=== PATIENT | female | born 1940 | race Caucasian/White ===

== ENCOUNTER 2018-04-26 08:54 | Emergency (ER) | payer MEDICARE, OTHER ==
[~2018-04-26] VITALS: Ht 172.7 cm; Wt 74.4 kg
--- OUTSIDE RECORDS SUMMARY | ~2018-04-26 | XMS | Clinical Summary ---
Demographics + + + | Address | [address] | | | [place] [address] | + + + | Home Phone | | + + + | Preferred Language | Unknown | + + + | Marital Status | Unknown | + + + | Zoroastrian Affiliation | Unknown | + + + | Race | Unknown | + + + | Ethnic Group | Unknown | + + + Author + + + | Author | [facility] | | | and [facility] | + + + | Organization | [facility] | | | and [facility] | + + + | Address | Unknown | + + + | Phone | Unavailable | + + + Care Team Providers + +------+ + | Care Middle Card Tender Name | Role | Phone | + +------+ + PP | Unavailable | + +------+ + Allergies Not on File Current Medications Not on file Active Problems Not on file Social History + +-------+ +--------+------+ | Tobacco [...] on file | | + + + Plan of Treatment + + + + + | Health Maintenance | Due Date | Last Done | Comments | + + + + + | Vaccine: | | | | | Dtap/Tdap/Td (1 - | 8 | | | | Tdap) | | | | + + + + + | Vaccine: Zoster (1 | | | | | of 2) | 9 | | | + + + + + | Vaccine: | | | | | Pneumococcal 65+ | 4 | | | | Low/Medium Risk (1 | | | | | of 2 - PCV13) | | | | + + + + + | Vaccine: Influenza | | | | | (#1) | 8 | | | + + + + + Results Not on filefrom Last 3 Months"
--- OUTSIDE RECORDS SUMMARY | ~2018-04-26 | XMS | Clinical Summary ---
Demographics + + + | Address | [address] | | | [place] [address] | + + + | Home Phone | | + + + | Preferred Language | Unknown | + + + | Marital Status | | + + + | Roman Catholic Affiliation | Unknown | + + + | Race | White | + + + | Ethnic Group | Not or | + + + Author + + + | Organization | Unknown | + + + | Address | Unknown | + + + | Phone | Unavailable | + + + Care Team Providers + +------+ + | Care District Court Judge Name | Role | Phone | + +------+ + PP | Unavailable | + +------+ + Source Comments [facility] is fully live on both [facility] and [facility] InPatient.[facility] Allergies Not on File Current Medications Not [...] | + + + + + | Pneumococcal (Adult) | | | | | (1 of 2 - PCV13) | 4 | | | + + + + + | INFLUENZA VACCINE | | | | | (FLU SHOT) | 8 | | | + + + + + Results Not on filefrom Last 3 Months"
--- OUTSIDE RECORDS SUMMARY | ~2018-04-26 | XMS | Clinical Summary ---
Demographics + + + | Address | [address] | | | [place] [address] | + + + | Home Phone | | + + + | Preferred Language | Unknown | + + + | Marital Status | | + + + | Caodaism Affiliation | Unknown | + + + | Race | White | + + + | Ethnic Group | Not or | + + + Author + + + | Organization | Unknown | + + + | Address | Unknown | + + + | Phone | Unavailable | + + + Care Team Providers + +------+ + | Care Boiler Room Helper Name | Role | Phone | + +------+ + PP | Unavailable | + +------+ + Source Comments [facility] is fully live on both [facility] and [facility] InPatient.[facility] Allergies Not on File Current Medications Not [...]
--- OUTSIDE RECORDS SUMMARY | ~2018-04-26 | XMS | Clinical Summary ---
Demographics + + + | Address | [address] | | | [place] [address] | + + + | Home Phone | | + + + | Preferred Language | Unknown | + + + | Marital Status | Single | + + + | Jewish Affiliation | Unknown | + + + | Race | Unknown | + + + | Ethnic Group | Unknown | + + + Author + + + | Author | [facility] | + + + | Organization | [facility] [facility] | + + + | Address | Unknown | + + + | Phone | Unavailable | + + + Care Team Providers + +------+ + | Care Band Sawyer Name | Role | Phone | + +------+ + | Medicine, [place] | PP | Unavailable | | Family | | | + +------+ + Allergies Not on [...] | + + + Plan of Treatment Not on file Results Not on filefrom Last 3 Months"
--- OUTSIDE RECORDS SUMMARY | ~2018-04-26 | XMS | Clinical Summary ---
Demographics + + + | Address | [address] | | | [place] [address] | + + + | Home Phone | | + + + | Preferred Language | Unknown | + + + | Marital Status | Unknown | + + + | Jainism Affiliation | Unknown | + + + | Race | Unknown | + + + | Ethnic Group | Unknown | + + + Author + + + | Author | [facility] | | | and [place] | + + + | Organization | [facility] | | | and [place] | + + + | Address | Unknown | + + + | Phone | Unavailable | + + + Care Team Providers + +------+ + | Care Home Security Alarm Installer Name | Role | Phone | [...]
--- OUTSIDE RECORDS SUMMARY | ~2018-04-26 | XMS | Clinical Summary ---
Demographics + + + | Address | [address] | | | [place] [address] | + + + | Home Phone | | + + + | Preferred Language | Unknown | + + + | Marital Status | Single | + + + | Hinduism Affiliation | Unknown | + + + | Race | Unknown | + + + | Ethnic Group | Unknown | + + + Author + + + | Author | [facility] | + + + | Organization | [facility] | + + + | Address | Unknown | + + + | Phone | Unavailable | + + + Care Team Providers + +------+ + | Care Digital Program Manager Name | Role | Phone | + +------+ + | Medicine, [place] | PP | Unavailable | | Family [...]
[2018-04-26] MEDS ORDERED: CLONAZEPAM1 MG PO (09:11)
[2018-04-26] MEDS ORDERED: MYCOPHENOLATE500 MG PO (09:11)
[2018-04-26] MEDS ORDERED: [UNRECOGNIZED DRUG - OTHER] PO (09:12)
[2018-04-26] MEDS ORDERED: ALENDRONATE SOD70 MG PO (09:13)
[2018-04-26] MEDS ORDERED: NORCO 5-325 TA1 EACH PO (09:26)
[2018-04-26] MEDS ORDERED: METHYLPREDNISOLO4 M1 PO (09:26)
== END 2018-04-26 10:00 | disposition home or self-care (01) ==
LOC: ED 08:54
DX: S20.212A Contusion of left front wall of thorax, initial encounter (principal); Z88.2 Allergy status to sulfonamides; Z79.899 Other long term (current) drug therapy; W18.30XA Fall on same level, unspecified, initial encounter; Y93.01 Activity, walking, marching and hiking
CPT/HCPCS: 99283

== ENCOUNTER 2018-07-29 16:40 | Inpatient (IN) | payer MEDICARE, OTHER ==
[~2018-07-29] VITALS: Ht 172.7 cm; Wt 75.6 kg
[~2018-07-29 16:40] MED LIST: ALENDRONATE SOD70 MG PO; CLONAZEPAM1 MG PO; METHYLPREDNISOLO4 M1 PO; MYCOPHENOLATE500 MG PO; NORCO 5-325 TA1 EACH PO; [UNRECOGNIZED DRUG - OTHER] PO
--- NOTE | 2018-07-29 22:34 | NUR ---
PT ARRIVED VIA STRETCHER TO ROOM 123. ALERT AND OREINTATED, WAS SLIDE ACROSS WITH ASSIST OF MULT STAFF. TOLERATED FAIR, COMPLAINT PAIN WHEN TURNING, ONCE DONE, PAIN DECREASED. L LEG SUPPORTED ON PILLOW FOR COMFORT.
--- NOTE | 2018-07-29 23:15 | NUR ---
PATIENT RESTING IN BED. DENIES ANY PAIN AT THIS TIME. AAOX4. LUNGS ARE CLEAR. VS WNL. ABD IS SOFT, BOWEL SOUNDS ACTIVE. TELE [address] NO EDEMA NOTED. LEFT LEG IN SPLINT, CMS INTACT. LEG ELEVATED. QUINTANILLA IN PLACE, URINE DRAINING FREELY. IV PATENT, IV FLUIDS AND BOLUS STARTED. PATIENT DENIES ANY NEEDS AT THIS TIME AND REQUESTING TO REST. CALL LIGHT IN REACH.
--- NOTE | 2018-07-30 02:42 | NUR ---
PATIENT REQUESTING PRN PAIN MEDICATION FOR LEFT LEG PAIN 01/30. PRN DILAUDID PROVIDED. PATIENT REPORTS BEING COMFORTABLE IN THE BED. LEFT LEG ELEVATED. CMS INTACT. IV FLUIDS PER ORDER, SITE WNL. QUINTANILLA DRAINING CLOWDY URINE, OUTPUT QS. PATIENT DENIES OTHER NEEDS. CALL LIGHT IN REACH.
--- NOTE | 2018-07-30 04:30 | NUR ---
PATIENT APPEARS TO BE SLEEPING. EYES CLOSED. RR 18. IV FLUIDS PER ORDER, SITE WNL. CALL LIGHT IN REACH.
--- NOTE | 2018-07-30 05:30 | NUR ---
PATIENT RESTING IN BED. REPORTS THAT SHE DOESN'T THINK SHE SLEPT AT ALL BECAUSE SHE IS ANXIOUS ABOUT WHAT WILL HAPPEN TODAY. REPORTS PAIN "BARELY THERE". RATES 5/10 AND STATES THAT IS COMFORTABLE, DENIES NEEDS FOR PRN PAIN MEDICATION. QUINTANILLA DRAINING WELL, OUTPUT QS. VS STABLE. IV FLUIDS PER ORDER, SITE WNL. PATIENT REQUEST HOT CHOCOLATE AND A MENU FOR BREAKFAST WHICH WAS GIVEN TO HER.
--- NOTE | 2018-07-30 06:12 | NUR ---
PATIENT ARRIVED AROUND 2300 LAST NIGHT. PAIN WELL CONTROLLED WITH 1 NORCO IN ED AND 1 DOSE OF IV DILAUDID. LEFT LEG IN SPLINT, ELEVTAED, CMS INTACT. QUINTANILLA IN PLACE, OUTPUT QS. IV FLUIDS PER ORDER, SITE WNL. BED REST AT THIS TIME. REGULAR DIET. PATIENT AAOX4.
--- NOTE | 2018-07-30 07:30 | NUR ---
REPORT FROM MARGARITA SHARPE. PT AWAKE AND SITTING UPRIGHT IN BED. STATES HER PAIN IS WELL CONTROLLED, ESPECIALLY WHILE SITTING STILL. RATES PAIN 3\10. TELE #2 SR. PT DENIES CONCERNS. ORDERED BREAKFAST.
--- NOTE | 2018-07-30 07:37 | NUR ---
RECIEVED CRITICAL LAB VALUE FROM KORINA IN THE LAB, TROP T VALUE OF 0.017. DR BHATIA AND DR YI ADVISED. NO NEW ORDERS.
--- NOTE | 2018-07-30 09:22 | NUR ---
IMAGING IN ROOM FOR ECHO. PT DENIES CONCERNS ATT.
--- NOTE | 2018-07-30 10:03 | NUR ---
CHANGED IVF BAG. PT STATES IT FEELS FINE. HAS VISITOR IN ROOM. NEED TO CHANGE IV LATER TODAY DUE TO FIELD START. PT OK WITH THAT.
--- NOTE | 2018-07-30 10:07 | NUR ---
PATIENT IN BED TALKING WITH VISITOR. FRESH WATER GIVEN. CALL LIGHT IN REACH. NO FURTHER NEEDS AT THIS TIME.
--- NOTE | 2018-07-30 11:09 | NUR ---
PT BACK FROM CT. STATES THE PAIN WAS BRIEF AND DENIES NEED FOR ANY MEDICATION. REHOOKED TO IVF.
--- NOTE | 2018-07-30 13:00 | NUR ---
ELIZABETH PETER IN ROOM TO TALK TO PT REGARDING SURGERY TOMORROW. PT ASKED QUESTIONS APPROPRIATLY. FRIEND IN ROOM. PT DENIES ANY CONCERNS REGARDING SURGERY
--- NOTE | 2018-07-30 15:11 | NUR ---
PATIENT IN BED TALKING TO VISITORS. CALL LIGHT IN REACH. NO FURTHER NEEDS AT THIS TIME.
--- NOTE | 2018-07-30 15:22 | NUR ---
PT HAS VISITORS IN ROOM. QUICK ASSESSMENT DONE. PULSES INTACT. DENIES PAIN.
--- NOTE | 2018-07-30 17:01 | NUR ---
CALLED, NO ANSWER, LEFT MESSAGE SAYING ECHO RESULTS RETURNED TO MED-SURG STATING DR. YI CLEARED PT FOR SURGERY TOMORROW. NO PATIENT NAME MENTIONED IN MESSAGE LEFT ON VOICEMAIL.
--- NOTE | 2018-07-30 18:16 | NUR ---
PATIENT SITTING UP IN EBD EATING DINNER. FRESH WATER GIVEN. B/P HIGH, RN NOTIFIED. CALL LIGHT IN REACH. NO FURTHER NEEDS AT THIS TIME.
--- NOTE | 2018-07-30 18:20 | NUR ---
PT ON BEDREST THROUGH OUT DAY. PT TOLERATED HER PAIN AND DECLINED PAIN MEDICATION. TRIED TO HAVE BM ON BEDPAN, UNABLE. RA. D5LR @ 100. SURGERY PLANNED FOR 0930. SHOULD BE HERE TO GET HER AROUND 0800.
--- NOTE | 2018-07-30 19:20 | NUR ---
SHIFT REPORT RECEIVED. PATIENT RESTING IN BED. DENIES ANY PAIN. CALL LIGHT IN REACH. IV FLUIDS PER ORDER, SITE WNL.
--- NOTE | 2018-07-30 20:14 | NUR ---
SPOKE WITH DR. JANNETTE CARRENO PRN PAIN/NAUSEA MEDICATION. ORDERS RECEIVED. VERIFIED USING READ BACK METHOD.
--- NOTE | 2018-07-30 22:30 | NUR ---
PATIENT APPEARED TO BE SLEEPING IN BED. WOKE EASILY TO VOICE. PATIENT DENIES PAIN. SPLINT ON LEFT LEG. CMS INTACT. PATIENT LEANING HEAVILY TO RIGHT SIDE. REPOSITIONED FOR COMFORT. LEFT LEG ELEVATED ON PILLOWS. PATIENT'S IV SITE WAS STARTED BY EMS, PER POLICY PATIENT REQUIRES NEW SITE. UNSUCCESSFUL ATTEMPT BY THIS RN. CHARTER REPRESENTATIVE CALLED FOR ASSISTANCE. PATIENTDENIES FURTHER NEEDS. CALL LIGHT IN REACH.
--- NOTE | 2018-07-30 22:59 | EKG ---
[facility] [address] [place] [address] Signed Normal sinus rhythm Left axis deviation Abnormal ECG No previous ECGs available Confirmed by NANO YI MD ([id number]) on 07/30/2018 10:58:46 PM Electronically Signed By: NANO YI MD 07/30/18 2259 PATIENT NAME: DAMION LINDO Electrocardiogram DATE OF : 38 PHYSICIAN: NANO YI MD REPORT #: [id number] REPORT IS CONFIDENTIAL AND NOT TO BE RELEASED WITHOUT AUTHORIZATION
--- NOTE | 2018-07-31 00:30 | NUR ---
QUALITY ASSURANCE SUPERVISOR BODY MELINA Martines WAS ABLE TO START IV SITE. SEE VASCULAR ACCESS MANAGEMENT.
--- NOTE | 2018-07-31 02:30 | NUR ---
PATIENT RESTING IN BED WHEN RN ROUNDED ON HER. STATES SHE HAS BEEN SLEEPING ON AND OFF BUT CAN'T GET WARM OR STAY ASLEEP. PATIENT PROVIDED WARM BLANKET, REPOSITIONED PATIENT. PRN MORPHINE PROVIDED FOR 5/10 PAIN. PATIENT DECLINED ICE PACKS. LEFT LEG ELEVATED ON PILLOWS. SKIN IS WARM, CMS INTACT. HEEL PROTECTOR ON RIGHT FOOT. IV FLUIDS INFUSING. PATIENT REPORTS BEING MORE COMFORTABLE. CALL LIGHT IN REACH.
--- NOTE | 2018-07-31 04:00 | NUR ---
PATIENT SLEEPING SOUNDLY, SNORING LIGHTLY. RR 18. CALL LIGHT IN REACH.
--- NOTE | 2018-07-31 05:35 | NUR ---
PATIENT SLEPT ON AND OFF THROUGHOUT THE SHIFT. PATIENT IS ORIENTED X4. CALL APPROPRIATELY. HAS NOT BEEN OUT OF BED. LEFT LEG IN SPLINT AND ELEVATED, CMS INTACT. QUINTANILLA, URINE OUTPUT QS. IV FLUIDS PER ORDER, 2 SITES FOR SURGERY. VS WNL. NO NAUSEA. NPO SINCE MIDNIGHT.
--- NOTE | 2018-07-31 07:08 | HP ---
[facility] [address] [place], [place] [address] Signed ADMISSION DATE: 07/29/2018 HISTORY OF PRESENT ILLNESS: Kaden is a 78-year-old white female, who presented to the emergency room last night. She describes a ground level fall at home. She sounds like she has a pretty minimal household ambulator to begin with, needs a wheelchair or a walker to get around at home. Be it as it may, she was standing up and had a weightbearing twisting injury and was unable to bear weight on her left leg there after. At present time, her only complaint is pain in the left leg. She is alert and oriented, white female, in no acute distress. Past medical history, medications, and allergies are deferred to the hospitalist consultation, although she reiterates to me that she actually has no allergies. She said she used to be allergic to pet dander, but she seemed to outgrow it when she hit 69. PHYSICAL EXAMINATION: GENERAL: She is alert and appropriate. HEAD, EARS, EYES, NOSE, AND THROAT: Did not reveal any evidence of craniofacial trauma. NECK: Moderately stiff, but that is consistent with her age. CHEST: Clear. CARDIAC: Reveals a regular rhythm. ABDOMEN: Benign. EXTREMITIES: Examination of her left leg reveals it to be encased in a long leg posterior splint. She appreciates light touch in the tips of her toes and nail beds are pink with a quick capillary refill. Her x-rays were reviewed and she has a spiral distal tibial fracture with some distal extension and a more proximal spiral fibular fracture. I have told her at this time. She has a fractured tibia and fibula, and our general recommendation is for surgical stabilization. At the present time, I am not sure if this will be best accomplished with a gisselle or with a plate. We will ask to CT scan of the ankle today, which we will hopefully let us see how comminuted the distal segment is to determine whether or not we can get distal fixation with a screw through a gisselle or whether we will need to go to a plate device. I explained all potential risks and complications associated with surgical intervention and she is comfortable with proceeding. I then called her daughter and described the same program to her. The daughter has had several previous fractures and apparently had taken care of the Electronically Signed By: YAKOV BHATIA MD 07/31/18 0708 PATIENT NAME: KADEN LINDO HISTORY AND PHYSICAL DATE OF : 38 REPORT #: [id number] PHYSICIAN: YAKOV BHATIA MD PCP: TEJINDER BENAVIDES MD REPORT IS CONFIDENTIAL AND NOT TO BE RELEASED WITHOUT AUTHORIZATION [facility] [address] [place] [id number] Signed daughter before. The daughter previously had a tibial fracture that was treated with an IM nail, so the daughter seems quite knowledgeable about potential risks and complications, and is comfortable with proceeding as outlined for her mother. MD HUGH DavisB/MODL /[id number] Copies: ~ Electronically Signed By: YAKOV BHATIA MD 07/31/18 0708 PATIENT NAME: KADEN LINDO HISTORY AND PHYSICAL DATE OF : 38 REPORT #: [id number] PHYSICIAN: YAKOV BHATIA MD PCP: TEJINDER BENAVIDES MD REPORT IS CONFIDENTIAL AND NOT TO BE RELEASED WITHOUT AUTHORIZATION
--- NOTE | 2018-07-31 07:27 | NUR ---
BEDSIDE REPORT FROM SHERYL AVILA, PT SITTING UP IN BED ALERT AND ORIENTED. NO DISTRESS, PT REPORTS NO PAIN AT THIS TIME.
--- NOTE | 2018-07-31 08:15 | NUR ---
PT SITTING UP IN BED VISITNG WITH GUESTS IN ROOM
--- NOTE | 2018-07-31 09:23 | NUR ---
SPOKE WITH PATIENT AND FRIENDS IN ROOM. PATIENT LIVES AT OWN HOME, HAS RAMP AND HAS DME EQUIPMENT. PATIENT HAS BEEN UNSTEADY ON FEET AND HAS FALLEN A FEW TIMES THIS LAST YEAR. PATIENT TO GO TO SURGERY THIS MORNING TO REPAIR A FRACTURED LEG. SHE HAS DISCUSSED WITH HER FRIENDS AND THEY HAVE CALLED [facility] IN [place] FOR PROBABLE REHAB STAY THERE POSTOPERTIVELY. SHE HAS AN ADULT SON WHO STAYS AT HER HOUSE BUT CANNOT COUNT ON HIM FOR HELP. WE DISCUSSED MEDICARE PAYMENT FOR REHAB. ENCOURAGED HER FRIENDS TO BRING IN HER WALKER TO USE WITH PT TOMORROW. WE DISCUSSED POSSIBLE IN-HOME HELP TO HIRE AFTER REHAB STAY. QUESTIONS ANSWERED.
--- NOTE | 2018-07-31 09:28 | NUR ---
PT OFF THE UNIT AT THIS TIME WITH NIYA AVILA FROM SURGERY DEPT. TRANSFER TO SURGERY DEPT FOR PROCEDURE
[2018-07-31] MEDS ORDERED: VITAMIN C500 M1 PO (13:14)
[2018-07-31] MEDS ORDERED: VIACTIV SOFT C1 EACH PO (13:14)
--- NOTE | 2018-07-31 13:14 | NUR ---
PT REPORTS NO PAIN, SLIGHT DISCOMFORT, SHE REPORTS NO NEED FOR PAIN COVERAGE AT THIS TIME.
[2018-07-31] MEDS ORDERED: COQ-10100 MG PO (13:17)
[2018-07-31] MEDS ORDERED: CALTRATE+D3 PL1 EACH PO (13:17)
--- NOTE | 2018-07-31 13:18 | NUR ---
MED REC COMPLETE
--- NOTE | 2018-07-31 13:18 | NUR ---
PT REQUESTED BED CAPPS FOR POSSIBLE BM. FLATUS POSITIVE, NO STOOL.
--- NOTE | 2018-07-31 14:45 | NUR ---
PATIENT IN BED TALKING TO VISITORS. CALL LIGHT IN REACH. NO FURTHER NEEDS AT THIS TIME.
--- NOTE | 2018-07-31 16:29 | NUR ---
PT REPORTS NO PAIN SHE SAID "I AM JUST A LITTLE UNCOMFORTABLE" SHE ALSO DECLINED ANY PAIN COVERAGE INCLUDING TYLENOL. PT AND GUESTS AT BEDSIDE INTERESTED IN KNOWING IF ANY PLANS ARE BEING MADE FOR TRANSFER. WILL UPDATE NEW INFORMATION AVAILABLE
--- NOTE | 2018-07-31 17:11 | NUR ---
SPOKE WITH , UPDATED FAMILY OF POSSIBLE TRANSFER TO [facility]
--- NOTE | 2018-07-31 17:41 | NUR ---
PATIENT SITTING UP IN BED EATING DINNER. CALL LIGHT IN REACH. NO FURTHER NEEDS AT THIS TIME.
--- NOTE | 2018-07-31 18:35 | NUR ---
PT HAS NOT REPORTED PAIN OVER SHIFT, SHE IS BED REST ONLY PER MD ORDER. SHE HAS QUINTANILLA DRAINING WELL. URINE Q.S., WAS PLANNED FOR SURGERY THIS AM, THIS WAS CANCELLED DUE TO FURTHER REVIEW OF ECHO RESULTS. IS NOW WORKING TO HAVE PT TRANSFERED TO HIGHER CARE FACILITY.
--- NOTE | 2018-07-31 19:00 | NUR ---
SHIFT REPORT RECEIVED. PATIENT ON THE PHONE. RESTING IN BED. FAMILY IN ROOM. CALL LIGHT IN REACH.
--- NOTE | 2018-07-31 20:00 | NUR ---
PATIENT RESTING IN BED. FAMILY IN ROOM. PATIENT ORIENTED X4. DENIES PAIN, RATES 2/10. LEFT LEG ELEVATED ON PILLOWS, SPLINT IN PLACE. CMS INTACT. SCD AND HEEL PROTECTOR ON RIGHT LEG. QUINTANILLA DRAINING CLEAR YELLOW URINE. REPOSITIONED PATIENT FOR COMFORT. IV FLUIDS PER ORDER, SITE WNL. LUNGS ARE CLEAR. ENCOURAGED PATIENT TO USE IS. UPDATED PATIENT AND FAMILY ON PROGRESS OF TRANSFER TO HIGHER LEVEL OF CARE. NO NEEDS AT THIS TIME. CALL LIGHT IN REACH.
--- NOTE | 2018-07-31 22:30 | NUR ---
TRANSPORT ARRANGED FOR PATIENT TO TRANSFER TO [facility]. PATIENT NOTIFIED. PAPERWORK FILLED OUT BY MYSELF AND EXCAVATOR BACKHOE OPERATOR. PATIENT'S BELONGINGS PACKED. FINAL VS AND I&O'S DONE. PATIENT'S NEXT OF KIN NOTIFIED PER PATIENT REQUEST.
--- NOTE | 2018-07-31 23:15 | NUR ---
[facility] HERE FOR TRANSPORT. REPORT PROVIDED AT BEDSIDE. PATIENT DENIES PAIN OR NEED FOR PAIN MEDICATION. IV FLUIDS PER ORDER. 3 PERSON ASSIST TO TRANSFER PATIENT TO STRETCHER. WARM BLANKETS PROVIDED. BELONGINGS WITH PATIENT.
--- NOTE | 2018-08-01 00:30 | NUR ---
REPORT CALLED TO [facility].
== END 2018-07-31 23:29 | disposition short-term general hospital (02) | DRG 543 ==
LOC: ED 16:40 → MS 20:21
PROVIDERS: ADMIT Orthopaedic Surgery
DX: M80.062A Age-related osteoporosis with current pathological fracture, left lower leg, initial encounter for fracture (principal); N04.9 Nephrotic syndrome with unspecified morphologic changes; I25.10 Atherosclerotic heart disease of native coronary artery without angina pectoris; R82.71 Bacteriuria; G93.89 Other specified disorders of brain
CPT/HCPCS: 29515; 36415; 51701; 70450; 73590; 73610; 73700; 80048; 80053; 81001; 83735; 84484; 85025; 87077; 87088; 87186; 93005; 93010; 93306; 96374; 99285-25; J0696; J1100; J1170; J2270; J2704; J2795; J7120

== ENCOUNTER 2020-03-28 17:03 | Emergency (ER) | payer MEDICARE, OTHER ==
[~2020-03-28] VITALS: Ht 172.7 cm; Wt 75.3 kg
--- OUTSIDE RECORDS SUMMARY | ~2020-03-28 | XMS | Encounter Summary ---
Demographics + + + | Address | [address] | | | [place] [address] | + + + | Home Phone | | + + + | Preferred Language | Unknown | + + + | Marital Status | | + + + | Mandaen Affiliation | Unknown | + + + | Race | White | + + + | Ethnic Group | Not or | + + + Author + + + | Author | [facility] | | | and [place] | + + + | Organization | [facility] | | | and [place] | + + + | Address | Unknown | + + + | Phone | Unavailable | + + + Support + + + + + | Name | Relationship | Address | Phone | + + + + + | Mora Martinez | ECON | [address] | | | | | [place] [address] | | + + + + + Care Team Providers + +------+ + | Care Fun House Attendant Name | Role | Phone | + +------+ + | Murphy Jim | PCP | | | MD | | | + +------+ + Encounter Details +--------+ + + + + | Date | Type | Department | Care Team | Description | +--------+ + + + + | 09/18/ | Hospital | [facility] | John Garcia | S/p tibial fracture | | 2019 | Encounter | [facility] | MD [address] | | | | | [address] | [facility] | | | | | [place], [place] | [place] [address] | | | | | [address] | [phone] | | | | | [phone] | | | +--------+ + + + + Social History + +-------+ +--------+------+ | Tobacco Use | Types | Packs/Day | Years | Date | | | | | Used | | + +-------+ +--------+------+ | Never Smoker | | | | | + +-------+ +--------+------+ + +---+---+---+ | Smokeless Tobacco: | | | | | Never Used | | | | + +---+---+---+ + + +---------+ + | Alcohol Use | Drinks/Week | oz/Week | Comments | + + +---------+ + | Yes | | | Occasionally | + + +---------+ + + + + | Sex Assigned at | Date Recorded | | | | + + + | Not on file | | + + + documented as of this encounter Medications at Time of Discharge + + + +---------+ + + | Medication | Sig | Dispensed | Refills | Start | End Date | | | | | | Date | | + + + +---------+ + + | alendronate | take 1 tablet by | | 0 | 04/23/20 | | | (FOSAMAX) 70 mg | mouth every week | | | 18 | | | tablet | | | | | | + + + +---------+ + + | | take 1 tablet by | | 0 | 04/26/20 | | | HYDROcodone-acetamin | mouth four times a | | | 18 | | | ophen (NORCO) 5-325 | day if needed for | | | | | | mg per tablet | pain | | | | | + + + +---------+ + + | methylPREDNISolone | take by mouth as | | 0 | 04/26/20 | | | (MEDROL DOSEPAK) 4 | directed PER PACKAGE | | | 18 | | | mg tablet | DIRECTIONS with | | | | | | | food | | | | | + + + +---------+ + + | mycophenolate | Take 1,000 mg by | | 0 | | | | (CELLCEPT) 500 MG | mouth 2 times daily. | | | | | | tablet | | | | | | + + + +---------+ + + | acetaminophen | Take 1,000 mg by | | 0 | 08/07/19 | | | (TYLENOL) 500 mg | mouth 2 times daily. | | | 19 | 9 | | tablet | | | | | | + + + +---------+ + + | calcium carbonate | Take 500-1,000 mg by | | 0 | 08/07/19 | | | (TUMS) 500 mg | mouth Daily. | | | 19 | 9 | | chewable tablet | | | | | | + + + +---------+ + + | cholecalciferol | Take 2,000 Units by | | 0 | 08/07/19 | | | (CHOLECALCIFEROL) | mouth Daily. | | | 19 | 9 | | 2000 units TABS | | | | | | + + + +---------+ + + | docusate sodium | Take 100 mg by mouth | | 0 | 08/07/19 | | | (COLACE) 100 MG | 2 times daily. | | | 19 | 9 | | capsule | | | | | | + + + +---------+ + + | docusate sodium | Place 283 mg | | 0 | 08/07/19 | | | (ENEMEEZ) 283 MG | rectally as needed. | | | 19 | 9 | | enema | | | | | | + + + +---------+ + + | magnesium | Take 30 mLs by mouth | | 0 | 08/07/19 | | | hydroxide (MILK OF | as needed. | | | 19 | 9 | | MAGNESIA) 400 mg/5 | | | | | | | mL suspension | | | | | | + + + +---------+ + + | melatonin 5 mg | Take 5 mg by mouth | | 0 | 08/07/19 | | | tablet | as needed. | | | 19 | 9 | + + + +---------+ + + | oxyCODONE | Take 2.5 mg by mouth | | 0 | 08/07/19 | | | (ROXICODONE) 5 mg | EVERY 4 TO 6 HOURS | | | 19 | 9 | | tablet | NEEDED. | | | | | + + + +---------+ + + | polyethylene | Take 17 g by mouth | | 0 | 08/07/19 | | | glycol (MIRALAX) | as needed. | | | 19 | 9 | | packet | | | | | | + + + +---------+ + + | rivaroxaban | Take 1 tablet by | 16 | 0 | 08/17/19 | | | (XARELTO) 10 mg | mouth Daily. | tablet | | 19 | 9 | | tablet | | | | | | + + + +---------+ + + | simethicone | Take 80 mg by mouth | | 0 | 08/07/19 | | | (MYLICON) 80 mg | as needed. | | | 19 | 9 | | chewable tablet | | | | | | + + + +---------+ + + documented as of this encounter Plan of Treatment Not on filedocumented as of this encounter Procedures + +--------+ + + + | Procedure Name | Priori | Date/Time | Associated Diagnosis | Comments | | | ty | | | | + +--------+ + + + | XR TIBIA FIBULA LEFT | Routin | 09/18/2018 | S/p tibial | Results for this | | 2 VW | e | 9:26 AM | fracture | procedure are in the | | | | PST | | results section. | + +--------+ + + + documented in this encounter Results XR Tibia Fibula Left 2 Vw (09/18/2018 9:26 AM PST) + + | Specimen | + + | | + + + + + | Narrative | Performed At | + + + | XR TIBIA FIBULA LEFT 2 VW 09/18/2018 9:26 AM HISTORY: LEFT | [facility] | | TIB/FIB FX. COMPARISON: 08/17/2018. FINDINGS: Again visualized | | | is an intramedullary gisselle through the tibia for fixation of a distal | | | tibial fracture in near anatomic alignment. There is redemonstration | | | of a mildly displaced fracture of the proximal fibula. Minimal callus | | | formation are at the fracture sites consistent with healing. There | | | are mild degenerative changes of the knee with chondrocalcinosis and | | | osteophytosis. Bone mineralization is decreased. Soft tissues are | | | unremarkable. IMPRESSION - Stable ORIF of distal tibial fracture | | | with minimal healing. Minimal healing of proximal fibular | | | fracture. Dictated and Signed by: Donny Childers MD | | | Electronically signed: 09/18/2018 12:58 PM | | + + + + + | Procedure Note | + + | Se Esquivel Results In - 09/18/2018 1:01 PM PST XR TIBIA FIBULA LEFT 2 VW 09/18/2018 | | 9:26 AMHISTORY: LEFT TIB/FIB FX.COMPARISON: 08/17/2018.FINDINGS:Again visualized is an | | intramedullary gisselle through the tibia for fixation of adistal tibial fracture in near | | anatomic alignment. There is redemonstration of amildly displaced fracture of the | | proximal fibula. Minimal callus formation areat the fracture sites consistent with | | healing. There are mild degenerativechanges of the knee with chondrocalcinosis and | | osteophytosis. Bonemineralization is decreased. Soft tissues are unremarkable.IMPRESSION | | -Stable ORIF of distal tibial fracture with minimal healing.Minimal healing of proximal | | fibular fracture.Dictated and Signed by: Donny Childers MD Electronically signed: | | 09/18/2018 12:58 PM | |at the fracture sites consistent with healing. There are mild degenerative | |changes of the knee with chondrocalcinosis and osteophytosis. Bone | |mineralization is decreased. Soft tissues are unremarkable. | | | |IMPRESSION - | |Stable ORIF of distal tibial fracture with minimal healing. | | | |Minimal healing of proximal fibular fracture. | | | |Dictated and Signed by: Donny Childers MD | | Electronically signed: 09/18/2018 12:58 PM | + + + +---------+ + + | Performing | Address | City/State/Zipcode | Phone Number | | Organization | | | | + +---------+ + + | [facility] | | | | + +---------+ + + documented in this encounter Visit Diagnoses + + | Diagnosis | + + | S/p tibial fracture Aftercare for healing traumatic fracture of lower leg | + + documented in this encounter"
--- OUTSIDE RECORDS SUMMARY | ~2020-03-28 | XMS | Encounter Summary ---
Demographics + + + | Address | [address] | | | [place] [address] | + + + | Home Phone | | + + + | Preferred Language | Unknown | + + + | Marital Status | | + + + | Amish Affiliation | Unknown | + + + | Race | White | + + + | Ethnic Group | Not or | + + + Author + + + | Author | [facility] | | | and [place] | + + + | Organization | [facility] | | | [...] | | | | | [place] [address] | | + + + + + Care Team Providers + +------+ + | Care Amusement Park Worker Name | Role | Phone | + +------+ + | Murphy Jim | PCP | | | MD | | | + +------+ + Encounter Details +--------+ + + + + | Date | Type | Department | Care Team | Description | +--------+ + + + + | 07/30/ | Orders Only | [facility] | [place] [facility], | | | 2018 | | CONVERSION [address] | MD [address] | | | | | [address] | [address] [place] | | | | | [place], [place] | [address] | | | | | [address] | | | | | | [phone] | | | +--------+ + + + + Social History + +-------+ +--------+------+ | Tobacco Use | Types | Packs/Day | Years | Date | | | | | Used | | + +-------+ +--------+------+ | Never Assessed | | | | | + +-------+ +--------+------+ + + + | Sex Assigned at [...] | + +--------+ + + + | ECHO INTERPRETATION | Routin | 07/30/2018 | | Results for this | | OF OUTSIDE FILMS | e | 12:48 PM | | procedure are in the | | | | PST | | results section. | + +--------+ + + + documented in this encounter Results ECHO Interpretation of Outside Films (07/30/2018 12:48 PM PST) + + | Specimen | + + | | + + + + + | Impressions | Performed At | + + + | 1. This was a technically difficult study with suboptimal | | | parasternal views. 2. Left ventricular systolic function is | | | hyperdynamic with an estimated EF of >70%. 3. The right ventricle is | | | normal in size and function. 4. There is borderline pulmonary | | | hypertension. 5. Echogenic mobile structure seen in the right atrium, | | | but it cannot be identified (cannot exclude a mass, possibly a | | | myxoma, as seen on limited subcostal views. It appears to be | | | attached to the free right atrial wall by a stalk). A GLADYS, gated | | | cardiac CT or MRI should be considered. 6. No significant valvular | | | abnormalities are noted. | | + + + + + + | Narrative | Performed At | + + + | Patient Name: Kaden Liang Date of : 1940 | | | Performing Physician: ZONIA CONTEH MD | | | | | | INDICATIONS Elevated troponin CONCLUSIONS | | | 1. This was a technically difficult study with suboptimal | | | parasternal views. 2. Left ventricular systolic function is | | | hyperdynamic with an estimated EF of >70%. 3. The right ventricle is | | | normal in size and function. 4. There is borderline pulmonary | | | hypertension. 5. Echogenic mobile structure seen in the right atrium, | | | but it cannot be identified (cannot exclude a mass, possibly a | | | myxoma, as seen on limited subcostal views. It appears to be | | | attached to the free right atrial wall by a stalk). A GLADYS, gated | | | cardiac CT or MRI should be considered. 6. No significant valvular | | | abnormalities are noted. FINDINGS -------- ECG rhythm: Sinus | | | rhythm. Study: A 2-dimensional transthoracic echocardiogram with | | | m-mode, spectral and color flow Doppler was perfomed at [facility]. Study: | | | This was a technically difficult study with suboptimal parasternal | | | views. Left Ventricle: Left ventricular systolic function is | | | hyperdynamic with an estimated EF of >70%. Left Ventricle: There is | | | equivocal mild concentric left ventricular hypertrophy. Left | | | Ventricle: No regional wall motion abnormalities. Left Ventricle: | | | Assessment of diastolic function is indeterminate. E:A reversal noted. | | | Right Ventricle: The right ventricle is normal in size and function. | | | Left Atrium: The left atrium is normal in size. Right Atrium: The | | | right atrium is normal in size. Right Atrium: Mobile echogenic | | | structure seen in the right atrium. Aortic Valve: The aortic valve | | | was not well visualized. Aortic Valve: There is no evidence of aortic | | | regurgitation. Aortic Valve: There is no evidence of aortic | | | stenosis. Mitral Valve: Normal appearing mitral valve. Mitral Valve: | | | No evidence of MVP, stenosis or regurgitation. Tricuspid Valve: The | | | tricuspid valve appears structurally normal. Tricuspid Valve: Trace | | | tricuspid regurgitation present. Tricuspid Valve: There is borderline | | | pulmonary hypertension. Tricuspid Valve: The right ventricular | | | systolic pressure (pulmonary artery systolic pressure), as measured by | | | Doppler, is 39.52mmHg. Pulmonic Valve: The pulmonic valve was not | | | well visualized. Pericardium: There is no pericardial effusion. | | | IVC/Hepatic Veins: The IVC is normal size (1.5-2.5cm) and collapses | | | <50% with sniff, consistent with central venous pressures of 10 mmHg. | | | Aorta: The aortic root, ascending aorta and aortic arch are normal. | | | Mass: Echogenic mobile structure seen in the right atrium, but it | | | cannot be identified (cannot exclude a mass, possibly a myxoma, as | | | seen on limited subcostal views. It appears to be attached to the | | | free right atrial wall by a stalk). A GLADYS, gated cardiac CT or MRI | | | should be considered. Thrombus: No clot visualized Thrombus: No | | | vegetation visualized. Septum: No ASD observed. Septum: No VSD | | | observed. MEASUREMENTS Ao asc: 3.24 cm Ao | | | Diam: 3.32 cm Ao sinus: 3.[address] junct: 3.19 cm IVC: | | | 1.52 cm LA Major: 3.79 cm EDV(Teich): 30.70 ml IVSd: | | | 1.30 cm LVIDd: 2.84 cm LVPWd: 1.26 cm LVOT Area: 3.81 cm2 | | | LVOT Diam: 2.20 cm %FS: 34.31 % EF(Teich): 65.18 % | | | ESV(Teich): 10.68 ml LVIDs: 1.86 cm SV(Teich): 20.01 ml RA | | | Major: 3.60 cm RV Major: 5.84 cm RV Minor: 2.44 cm RVIDd: | | | 2.29 cm LVEF MOD A2C: 69.63 % SV MOD A2C: 32.37 ml LVEF | | | MOD A4C: 68.36 % SV MOD A4C: 32.36 ml EF Biplane: 68.35 % | | | LVEDV MOD BP: 46.48 ml LVESV MOD BP: 14.70 ml LVEDV MOD A2C: | | | 46.49 ml LVLd A2C: 6.99 cm LVEDV MOD A4C: 47.33 ml LVLd | | | A4C: 6.96 cm LVESV MOD A2C: 14.11 ml LVLs A2C: 5.76 cm | | | LVESV MOD A4C: 14.97 ml LVLs A4C: 5.92 cm LAESV(A-L): 18.75 | | | ml LAESV Index (A-L): 10.08 ml/m2 LAAs A2C: 9.52 cm2 LAESV | | | A-L A2C: 18.74 ml LALs A2C: 4.11 cm LAAs A4C: 8.90 cm2 | | | LAESV A-L A4C: 17.52 ml LALs A4C: 3.83 cm RAAs: 8.05 cm2 | | | RAESV A-L: 15.45 ml RAESV MOD: 15.15 ml RALs: 3.56 cm | | | TAPSE: 1.69 cm AV maxP.49 mmHg AV meanP.48 mmHg | | | AV Vmax: 1.69 m/s AV Vmean: 1.18 m/s AV VTI: 30.81 cm LEONILA | | | Vmax: 3.80 cm2 LEONILA (VTI): 3.47 cm2 AVAI Vmax: 0.00 cm2/m2 | | | AVAI (VTI): 0.00 cm2/m2 LVOT maxP.45 mmHg LVOT meanPG: | | | 5.97 mmHg LVSI Dopp: 57.56 ml/m2 LVSV Dopp: 107.07 ml LVOT | | | Vmax: 1.69 m/s LVOT Vmean: 1.08 m/s LVOT VTI: 28.05 cm MV | | | A Miguel Angel: 1.01 m/s MV Dec [place]: 3.04 m/s2 MV DecT: 224.12 ms | | | MV E Miguel Angel: 0.68 m/s MV E/A Ratio: 0.66 MV PHT: 64.99 ms | | | MVA By PHT: 3.38 cm2 Septal e': 0.04 m/s Septal E/e': 14.16 | | | Lateral e': 0.05 m/s Lateral E/e': 12.03 RAP: 10 mmHg RV | | | S': 0.20 m/s RVSP: 39.52 mmHg TR maxP.52 mmHg TR | | | Vmax: 2.71 m/s Spring Former Machine: [email or web address] Authenticated by: ZONIA | | | MD [place] Report Date/Time: 07-30-2018 13:34:37 | | + + + + + | Procedure Note | + + | Alvin, Rad Conversion - 03/14/2019 12:53 PM PDT Patient Name: Ranjana Liang | | of : 1940 Performing Physician: ZONIA CONTEH, | | MD INDICATIONS E | | levated troponin CONCLUSIONS 1. This was a technically difficult study with | | suboptimal parasternal views.2. Left ventricular systolic function is hyperdynamic with | | an estimated EF of >70%.3. The right ventricle is normal in size and function.4. There | | is borderline pulmonary hypertension.5. Echogenic mobile structure seen in the right | | atrium, but it cannot be identified (cannot exclude a mass, possibly a myxoma, as seen | | on limited subcostal views. It appears to be attached to the free right atrial wall by | | a stalk). A GLADYS, gated cardiac CT or MRI should be considered. 6. No significant | | valvular abnormalities are noted. FINDINGS--------ECG rhythm: Sinus rhythm.Study: A | | 2-dimensional transthoracic echocardiogram with m-mode, spectral and color flow Doppler | | was perfomed at [facility].Study: This was a technically difficult study with suboptimal | | parasternal views.Left Ventricle: Left ventricular systolic function is hyperdynamic | | with an estimated EF of >70%.Left Ventricle: There is equivocal mild concentric left | | ventricular hypertrophy.Left Ventricle: No regional wall motion abnormalities.Left | | Ventricle: Assessment of diastolic function is indeterminate. E:A reversal noted.Right | | Ventricle: The right ventricle is normal in size and function.Left Atrium: The left | | atrium is normal in size.Right Atrium: The right atrium is normal in size.Right Atrium: | | Mobile echogenic structure seen in the right atrium.Aortic Valve: The aortic valve was | | not well visualized.Aortic Valve: There is no evidence of aortic regurgitation.Aortic | | Valve: There is no evidence of aortic stenosis.Mitral Valve: Normal appearing mitral | | valve.Mitral Valve: No evidence of MVP, stenosis or regurgitation.Tricuspid Valve: The | | tricuspid valve appears structurally normal.Tricuspid Valve: Trace tricuspid | | regurgitation present.Tricuspid Valve: There is borderline pulmonary | | hypertension.Tricuspid Valve: The right ventricular systolic pressure (pulmonary artery | | systolic pressure), as measured by Doppler, is 39.52mmHg.Pulmonic Valve: The pulmonic | | valve was not well visualized.Pericardium: There is no pericardial effusion.IVC/Hepatic | | Veins: The IVC is normal size (1.5-2.5cm) and collapses <50% with sniff, consistent with | | central venous pressures of 10 mmHg.Aorta: The aortic root, ascending aorta and aortic | | arch are normal.Mass: Echogenic mobile structure seen in the right atrium, but it cannot | | be identified (cannot exclude a mass, possibly a myxoma, as seen on limited subcostal | | views. It appears to be attached to the free right atrial wall by a stalk). A GLADYS, | | gated cardiac CT or MRI should be considered.Thrombus: No clot visualizedThrombus: No | | vegetation visualized.Septum: No ASD observed.Septum: No VSD observed. | | MEASUREMENTS Ao asc: 3.24 cmAo Diam: 3.32 cmAo sinus: 3.[address] | | junct: 3.19 cmIVC: 1.52 cmLA Major: 3.79 cmEDV(Teich): 30.70 mlIVSd: 1.30 | | cmLVIDd: 2.84 cmLVPWd: 1.26 cmLVOT Area: 3.81 [id number] Diam: 2.20 cm%FS: 34.31 | | %EF(Teich): 65.18 %ESV(Teich): 10.68 mlLVIDs: 1.86 cmSV(Teich): 20.01 mlRA | | Major: 3.60 cmRV Major: 5.84 cmRV Minor: 2.44 cmRVIDd: 2.29 cmLVEF MOD A2C: | | 69.63 %SV MOD A2C: 32.37 mlLVEF MOD A4C: 68.36 %SV MOD A4C: 32.36 mlEF Biplane: | | 68.35 %LVEDV MOD BP: 46.48 mlLVESV MOD BP: 14.70 mlLVEDV MOD A2C: 46.49 mlLVLd | | A2C: 6.99 cmLVEDV MOD A4C: 47.33 mlLVLd A4C: 6.96 cmLVESV MOD A2C: 14.11 mlLVLs | | A2C: 5.76 cmLVESV MOD A4C: 14.97 mlLVLs A4C: 5.92 cmLAESV(A-L): 18.75 mlLAESV | | Index (A-L): 10.08 ml/m2LAAs A2C: 9.52 [id number] A-L A2C: 18.74 mlLALs A2C: 4.11 | | cmLAAs A4C: 8.90 [id number] A-L A4C: 17.52 mlLALs A4C: 3.83 cmRAAs: 8.05 [id number] | | A-L: 15.45 mlRAESV MOD: 15.15 mlRALs: 3.56 cmTAPSE: 1.69 cmAV maxP.49 | | mmHgAV meanP.48 mmHgAV Vmax: 1.69 m/Wesley Vmean: 1.18 m/Wesley VTI: 30.81 cmAVA | | Vmax: 3.80 cm2AVA (VTI): 3.47 [id number] Vmax: 0.00 cm2/m2AVAI (VTI): 0.00 | | cm2/m2LVOT maxP.45 mmHgLVOT meanP.97 mmHgLVSI Dopp: 57.56 ml/m2LVSV Dopp: | | 107.07 mlLVOT Vmax: 1.69 m/sLVOT Vmean: 1.08 m/sLVOT VTI: 28.05 cmMV A Miguel Angel: | | 1.01 m/sMV Dec [place]: 3.04 m/s2MV DecT: 224.12 msMV E Miguel Angel: 0.68 m/sMV E/A Ratio: | | 0.66MV PHT: 64.99 msMVA By PHT: 3.38 hr8Qdsxil e': 0.04 m/sSeptal E/e': | | 14.16Lateral e': 0.05 m/sLateral E/e': 12.03RAP: 10 mmHgRV S': 0.20 m/sRVSP: | | 39.52 mmHgTR maxP.52 mmHgTR Vmax: 2.71 m/s Spring Former Machine: LANCEuthenticated by: | | Ruben RUIZ Date/Time: 07-30-2018 13:34:37 IMPRESSION: 1. This was a | | technically difficult study with suboptimal parasternal views.2. Left ventricular | | systolic function is hyperdynamic with an estimated EF of >70%.3. The right ventricle is | | normal in size and function.4. There is borderline pulmonary hypertension.5. Echogenic | | mobile structure seen in the right atrium, but it cannot be identified (cannot exclude a | | mass, possibly a myxoma, as seen on limited subcostal views. It appears to be attached | | to the free right atrial wall by a stalk). A GLADYS, gated cardiac CT or MRI should be | | considered. 6. No significant valvular abnormalities are noted. | |EDV(Teich): 30.70 ml | |IVSd: 1.30 cm | |LVIDd: 2.84 cm | |LVPWd: 1.26 cm | |LVOT Area: 3.81 cm2 | |LVOT Diam: 2.20 cm | |%FS: 34.31 % | |EF(Teich): 65.18 % | |ESV(Teich): 10.68 ml | |LVIDs: 1.86 cm | |SV(Teich): 20.01 ml | |RA Major: 3.60 cm | |RV Major: 5.84 cm | |RV Minor: 2.44 cm | |RVIDd: 2.29 cm | |LVEF MOD A2C: 69.63 % | |SV MOD A2C: 32.37 ml | |LVEF MOD A4C: 68.36 % | |SV MOD A4C: 32.36 ml | |EF Biplane: 68.35 % | |LVEDV MOD BP: 46.48 ml | |LVESV MOD BP: 14.70 ml | |LVEDV MOD A2C: 46.49 ml | |LVLd A2C: 6.99 cm | |LVEDV MOD A4C: 47.33 ml | |LVLd A4C: 6.96 cm | |LVESV MOD A2C: 14.11 ml | |LVLs A2C: 5.76 cm | |LVESV MOD A4C: 14.97 ml | |LVLs A4C: 5.92 cm | |LAESV(A-L): 18.75 ml | |LAESV Index (A-L): 10.08 ml/m2 | |LAAs A2C: 9.52 cm2 | |LAESV A-L A2C: 18.74 ml | |LALs A2C: 4.11 cm | |LAAs A4C: 8.90 cm2 | |LAESV A-L A4C: 17.52 ml | |LALs A4C: 3.83 cm | |RAAs: 8.05 cm2 | |RAESV A-L: 15.45 ml | |RAESV MOD: 15.15 ml | |RALs: 3.56 cm | |TAPSE: 1.69 cm | |AV maxP.49 mmHg | |AV meanP.48 mmHg | |AV Vmax: 1.69 m/s | |AV Vmean: 1.18 m/s | |AV VTI: 30.81 cm | |LEONILA Vmax: 3.80 cm2 | |LEONILA (VTI): 3.47 cm2 | |AVAI Vmax: 0.00 cm2/m2 | |AVAI (VTI): 0.00 cm2/m2 | |LVOT maxP.45 mmHg | |LVOT meanP.97 mmHg | |LVSI Dopp: 57.56 ml/m2 | |LVSV Dopp: 107.07 ml | |LVOT Vmax: 1.69 m/s | |LVOT Vmean: 1.08 m/s | |LVOT VTI: 28.05 cm | |MV A Miguel Angel: 1.01 m/s | |MV Dec [place]: 3.04 m/s2 | |MV DecT: 224.12 ms | |MV E Miguel Angel: 0.68 m/s | |MV E/A Ratio: 0.66 | |MV PHT: 64.99 ms | |MVA By PHT: 3.38 cm2 | |Septal e': 0.04 m/s | |Septal E/e': 14.16 | |Lateral e': 0.05 m/s | |Lateral E/e': 12.03 | |RAP: 10 mmHg | |RV S': 0.20 m/s | |RVSP: 39.52 mmHg | |TR maxP.52 mmHg | |TR Vmax: 2.71 m/s | | | |Spring Former Machine: | |Authenticated by: ZONIA CONTEH MD | |Report Date/Time: 07-30-2018 13:34:37 | | | |IMPRESSION: | |1. This was a technically difficult study with suboptimal parasternal views. | |2. Left ventricular systolic function is hyperdynamic with an estimated EF of >70%. | |3. The right ventricle is normal in size and function. | |4. There is borderline pulmonary hypertension. | |5. Echogenic mobile structure seen in the right atrium, but it cannot be identified (cannot exclude a mass, possibly a myxoma, as seen on limited subcostal views. It appears to be at tached to the free right atrial wall | |by a stalk). A GLADYS, gated cardiac | | CT or MRI should be considered. 6. No significant valvular abnormalities are noted. | + + documented in this encounter Visit Diagnoses Not on filedocumented in this encounter"
--- OUTSIDE RECORDS SUMMARY | ~2020-03-28 | XMS | Encounter Summary ---
Demographics + + + | Address | [address] | | | [place] [address] | + + + | Home Phone | | + + + | Preferred Language | Unknown | + + + | Marital Status | | + + + | Congregational Affiliation | Unknown | + + + | Race | White | + + + | Ethnic Group | Not or | + + + Author + + + | Author | [facility] | | | and [place] | + + + | Organization | [facility] | | | and [place] | + + + | Address | Unknown | + + + | Phone | Unavailable | + + + Support + + + + + | Name | Relationship | Address | Phone | + + + + + | Mora Martinez | ECON | [address] | | | | | [place] [address] | | + + + + + Care Team Providers + +------+ + | Care Mill Control Operator Name | Role | Phone | + +------+ + | Murphy Jim | PCP | | | MD | | | + +------+ + Encounter Details +--------+ + + + + | Date | Type | Department | Care Team | Description | +--------+ + + + + | 10/29/ | Imaging | [facility] | Provider, | | | 2020 | Exam | [facility] | [address] | | | | | IMAGING [address] | [address] | | | | | NIKKI CRUZJame | [place] [address] | | | | | [place] [address] | | | | | | [phone] | | | +--------+ + + + [...] + +--------+ + + + | XR ANKLE LEFT 3 + VW | Routin | 07/29/2018 | | Results for this | | | e | 12:10 AM | | procedure are in the | | | | PST | | results section. | + +--------+ + + + documented in this encounter Results XR Ankle Left 3 + Vw (07/29/2018 12:10 AM PST) + + | Specimen | + + | | + + + + + | Narrative | Performed At | + + + | External films for comparison only | [facility] | | | | | No results will be in the chart. | | + + + + +---------+ + + | Performing | Address | City/State/Zipcode | Phone Number | | Organization | | | | + +---------+ + + | [facility] | | | | + +---------+ + + documented in this encounter Visit Diagnoses Not on filedocumented in this encounter"
--- OUTSIDE RECORDS SUMMARY | ~2020-03-28 | XMS | Encounter Summary ---
Demographics + + + | Address | [address] | | | [place] [address] | + + + | Home Phone | | + + + | Preferred Language | Unknown | + + + | Marital Status | | + + + | Yarsani Affiliation | Unknown | + + + | Race | White | + + + | Ethnic Group | Not or | + + + Author + + + | Author | [facility] | | | and [place] | + + + | Organization | [facility] | | | and [place] | + + + | Address | Unknown | + + + | Phone | Unavailable | + + + Support + + + + + | Name | Relationship | Address | Phone | + + + + + | Mora Martinez | ECON | [address] | | | | | [place] [address] | | + + + + + Care Team Providers + +------+ + | Care Car Dumper Operator Helper Name | Role | Phone | + +------+ + | Murphy Jim | PCP | | | MD | | | + +------+ + Reason for Visit + + + | Reason | Comments | + + + | New Patient | Take over Post Op care of a tibula fracture repair. DOS 08/03/2018 | + + + Self-referral (Urgent) +--------+--------+ + + + + | Status | Reason | Specialty | Diagnoses / | Referred By | Referred To | | | | | Procedures | Contact | Contact | +--------+--------+ + + + + | Closed | | Orthopedic | Diagnoses | | Radha, | | | | Surgery | Fracture of | | John | | | | | left tibia | | MD Alvaro | | | | | | | [address] | | | | | | [address] | | | | | | | [place] | | | | | | | [address] | | | | | | | Phone: | | | | | | | [phone] | | | | | | | Fax: | | | | | | | [phone] | +--------+--------+ + + + + Encounter Details +--------+---------+ + + + | Date | Type | Department | Care Team | Description | +--------+---------+ + + + | 08/17/ | Office | [facility] | John Garcia | S/p tibial fracture | | 2019 | Visit | ORTHOPEDIC SURGERY | [address] | (Primary Dx) | | | | [address] | [address] [facility] | | | | | [place] | [place] [address] | | | | | [address] | [phone] | | | | | [phone] | | | +--------+---------+ + + + Social History + +-------+ [...] + + documented as of this encounter Last Filed Vital Signs + + + + + | Vital Sign | Reading | Time Taken | Comments | + + + + + | Blood Pressure | - | - | | + + + + + | Pulse | - | - | | + + + + + | Temperature | - | - | | + + + + + | Respiratory Rate | - | - | | + + + + + | Oxygen Saturation | - | - | | + + + + + | Inhaled Oxygen | - | - | | | Concentration | | | | + + + + + | Weight | 72.6 kg (160 lb) | 08/17/2018 9:42 AM | | | | | PST | | + + + + + | Height | 172.7 cm (5' 8") | 08/17/2018 9:42 AM | | | | | PST | | + + + + + | Body Mass Index | 24.33 | 08/17/2018 9:42 AM | | | | | PST | | + + + + + documented in this encounter Patient Instructions Patient Instructions John Garcia MD - 08/17/2018 10:40 AM PST Hemoglobin Does this test have other names? Hb, Hgb, H and H, Hemoglobin and hematocrit What is this test? This is a blood test to find out how much hemoglobin is in your blood. Hemoglobin is the ma in part of your red blood cells. Hemoglobin is made up of a protein called globin and a comp ound called heme. Heme consists of iron and a pigment called porphyrin, which gives your blo od its red color. Hemoglobin serves the important role of carrying oxygen and carbon dioxide through your blo od. If your hemoglobin is too low, you may not be able to supply the cells in your body with the oxygen they need to survive. Why do I need this test? You may need this test if it is part of routine blood testing. You may also need to have yo ur hemoglobin checked if you have anemia or symptoms of anemia. Anemia can be caused by bloo d loss, decreased production of red blood cells, or increased destruction of red blood cells . Your healthcare provider can use your hemoglobin test to help find the cause of your anemi a. These are other reasons you may need this test: To diagnose a disease that causes anemia To see how severe your anemia is To see whether your anemia is responding to treatment To evaluate a disease called polycythemia Symptoms of anemia may include: Shortness of breath Dizziness Headache Cold, pale skin Chest pain Polycythemia is a disease that causes your body to make too many red blood cells. Polycythe piero may cause: Heart attack Stroke Headache Blurred vision Dizziness What other tests might I have along with this test? Hemoglobin is usually tested as part of a complete blood count, or CBC. A CBC is a blood te st that counts all the different cells in your blood. A hemoglobin test may also be paired w ith a hematocrit test. When the two are tested together it is often called an H and H. The h ematocrit blood test tells what percent of your blood is made up by red blood cells. What do my test results mean? Test results may vary depending on your age, gender, health history, the method used for th e test, and other things. Your test results may not mean you have a problem. Ask your health care provider what your test results mean for you. Hemoglobin measurement is given in grams per deciliter (g/dL). Normal hemoglobin is differe nt for men, women, and children. Here are the approximate normal values: 12 to 16 g/dL for women 14 to 17.4 g/dL for men 9.5 to 24.5 g/dL for children, depending on the child's age. If your child is having thi s test, you should discuss the results with your child's healthcare provider. High hemoglobin levels can be caused by polycythemia, heart failure, and chronic obstructiv e pulmonary disease. Low hemoglobin may be caused by: Anemia Iron deficiency Liver disease Cancer and other diseases Hypothyroidism How is this test done? The test is done with a blood sample. A needle is used to draw blood from a vein in your ar m or hand. Does this test pose any risks? Having a blood test with a needle carries some risks. These include bleeding, infection, br uising, and feeling lightheaded. When the needle pricks your arm or hand, you may feel a sli ght sting or pain. Afterward, the site may be sore. What might affect my test results? Your hemoglobin may be affected by several factors: Living at high altitudes may make hemoglobin go up. Certain medicines can make hemoglobin go down or up. An extreme amount of exercise can make hemoglobin go up. may make hemoglobin go down. Taking in too much fluid can make hemoglobin go down. How do I get ready for this test? You don't need to prepare for this test. Make sure to tell your healthcare provider about: Any chance you are Any extreme exercising you have been doing Be sure your healthcare provider knows about all medicines, herbs, vitamins, and supplement s you are taking. This includes medicines that don't need a prescription and any illicit senthil gs you may use. [id number] [employer]. [address] [place] [address]. All righ ts reserved. This information is not intended as a substitute for professional medical care. Always follow your healthcare professional's instructions. documented in this encounter Progress Notes John Garcia MD - 08/17/2018 9:30 AM PSTFormatting of this note might be different fro m the original. [facility] POST-OPERATIVE VISIT Pt. Name/Age/: Kaden Liang 78 y.o. 1940 Primary Care Physician: Murphy Jim 1. S/p tibial fracture XR Tibia Fibula Left 2 Vw Chief Complaint/Reason for Visit: New Patient (Take over Post Op care of a tibula fracture repair. DOS 08/03/2018) History of Present Illness: The patient is a pleasant 78 y.o. female who presents for a post-operative visit. Since the surgery, the patient has been doing well overall. She has minimal pain at this point. She h ad a tibial shaft fracture on the left after a ground level fall. 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 She reports that she is doing better as time has gone on. She had a intr amedullary nail placed on 08/03/2018. This was done at a [facility] in [place]. The surgeon was Dr. Allen. There was no extension into the tibiotalar joint per the report. It was a very distal shaft fracture near the metaphysis. She is taking tylenol for pain and re ports that it is doing well. ROS: 10 point review of systems otherwise negative per the patient Physical Examination: Ht 1.727 m (5' 8") | Wt 72.6 kg (160 lb) | BMI 24.33 kg/m General: Alert, oriented, no acute distress HEENT: Normocephalic, atraumatic Cardiovascular: Regular rate and rhythm Respiratory: Breathing normally at a regular rate Ortho Exam Left lower extremity: Sensation intact to light touch in the first dorsal webspace, medial, lateral, dorsal and p lantar foot. Dorsalis pedis and posterior tibial pulses 2+. Able to plantarflex, dorsiflex, marcelo and invert the ankle. Her incisions are clean, dry and intact. Steristrips were placed on the proximal incision w here her quadriceps was split Diagnostic Studies: Imaging 2 views of the left tibia/fibula were reviewed. The fracture alignment is the same. There i s no bridging callus yet but that would be rather unexpected. The previous CT scan was reviewed. She has an avulsion fracture of the medial malleolus but there is no extension into the joint from the tibial shaft component that I can see. Labs- Lab Results Component Value Date NA 136 08/11/2018 K 4.4 08/11/2018 CL 104 08/11/2018 CO2 25 08/11/2018 ANIONGAP 7 08/11/2018 GLU 137 (H) 08/11/2018 BUN 18 08/11/2018 CREA 0.75 08/11/2018 GFRNONAA >60 08/11/2018 CALCIUM 8.6 08/11/2018 WBC 8.6 08/11/2018 HGB 11.3 (L) 08/11/2018 HCT 36.0 08/11/2018 MCV 93.3 08/11/2018 PLT 415 08/11/2018 Assessment and Plan: 1. S/p tibial fracture XR Tibia Fibula Left 2 Vw The patient is a pleasant 78 y.o. female who presents for a post-operative visit after the above surgery. At this point, I'll keep her non-weight bearing for another two weeks. I thin k she may resume weight-bearing at 25% for a week afterwards and then 50% for another week. If there has been no loss of reduction, we'll have her WBAT after the next visit. I do recom mend that she take Xarelto for the next 16 days to keep down the risk of DVTs and PE. I'll s ee her back in 4 weeks. Follow-up: 4 weeks with 2 views of the left tib/fib Portions of this report were transcribed using voice recognition software. Every effort wa s made to ensure accuracy; however, inadvertent computerized principal ios developer errors may be pre sent. I appreciate the opportunity to help with the management of this patient. John Garcia MD documented in this en counter Plan of Treatment Not on filedocumented as of this encounter Results XR Tibia Fibula Left 2 Vw (08/17/2018 9:36 AM PST) + + | Specimen | + + | | + + + + + | Narrative | Performed At | + + + | CLINICAL INFORMATION: LEFT TIB FX. COMPARISON: None available. | [facility] | | FINDINGS: 3 views of the left tibia/fibula. Intramedullary | | | gisselle and screw fixation of the tibia with a distal tibial fracture. | | | No evidence to suggest hardware complication. A mildly displaced | | | proximal fibular fracture is also noted. No other fracture | | | identified. Tricompartment knee joint degenerative changes with | | | chondrocalcinosis. Lower extremity soft tissue swelling. | | | IMPRESSION - Open reduction and internal fixation changes of the tibia | | | with distal tibia and proximal fibula fractures. Dictated and | | | Signed by: Jayden Herrera MD Electronically signed: 08/17/2018 | | | 1:31 PM | | + + + + + | Procedure Note | + + | Se Esquivel Results In - 08/17/2018 1:34 PM PST CLINICAL INFORMATION: LEFT TIB FX. | | | | COMPARISON: None available. | | | | FINDINGS: | | 3 views of the left tibia/fibula. | | | | Intramedullary gisselle and screw fixation of the tibia with a distal tibial | | fracture. No evidence to suggest hardware complication. A mildly displaced | | proximal fibular fracture is also noted. No other fracture identified. | | | | Tricompartment knee joint degenerative changes with chondrocalcinosis. | | | | Lower extremity soft tissue swelling. | | | | IMPRESSION - Open reduction and internal fixation changes of the tibia with | | distal tibia and proximal fibula fractures. | | | | Dictated and Signed by: Jayden Herrera MD | | Electronically signed: 08/17/2018 1:31 PM | + + + +---------+ + + | Performing | Address | City/State/Zipcode | Phone Number | | Organization | | | | + +---------+ + + | [facility] | | | | + +---------+ + + documented in this encounter Visit Diagnoses + + | Diagnosis | + + | S/p tibial fracture - Primary Aftercare for healing traumatic fracture of lower leg | + + documented in this encounter
--- OUTSIDE RECORDS SUMMARY | ~2020-03-28 | XMS | Encounter Summary ---
Demographics + + + | Address | [address] | | | [place] [address] | + + + | Home Phone | | + + + | Preferred Language | Unknown | + + + | Marital Status | | + + + | Mormon Affiliation | Unknown | + + + [...] | | | | | [place] [address] | | + + + + + Care Team Providers + +------+ + | Care Flow Nurse Name | Role | Phone | + [...] | | | | NIKKI CRUZJame | [place] [address] | | | | | [place] [address] | | | | | | [phone] | | | +--------+ + + + [...] + +--------+ + + + | ECHO COMPLETE | Routin | 07/30/2018 | | Results for this | | | e | 12:05 AM | | procedure are in the | | | | PST | | results section. | + +--------+ + + + documented in this encounter Results ECHO Complete (07/30/2018 12:05 AM PST) + + | Specimen | [...]
--- OUTSIDE RECORDS SUMMARY | ~2020-03-28 | XMS | Encounter Summary ---
Demographics + + + | Address | [address] | | | [place] [address] | + + + | Home Phone | | + + + | Preferred Language | Unknown | + + + | Marital Status | | + + + | Jain Affiliation | Unknown | + + + | Race | White | + + + | Ethnic Group | Not or | + + + Author + + + | Author | [facility] | | | and [place] | + + + | Organization | [facility] | | [...] | | | | | [place] [address] | | + + + + + Care Team Providers + +------+ + | Care Advanced Seal Delivery System Name | Role | Phone | + +------+ + | Murphy Jim | PCP | | | MD | | | + +------+ + Reason for Visit + + + | Reason | Comments | + + + | Follow-up, Office | Post op care of left tibular fracture. DOS 08/03/2018 | | Visit | | + + + Encounter Details +--------+---------+ + + + | Date | Type | Department | Care Team | Description | +--------+---------+ + + + | 10/30/ | Office | [facility] | John Garcia | Closed fracture of | | 2019 | Visit | ORTHOPEDIC SURGERY | [address] | shaft of left tibia | | | | [address] | [address] [facility] | with routine | | | | [address] | [place] [address] | healing, unspecified | | | | [address] | [phone] | fracture | | | | [phone] | | morphology, | | | | | | subsequent encounter | | | | | | (Primary Dx) | +--------+---------+ + + + Social History [...] Weight | 72.6 kg (160 lb) | 10/30/2018 10:27 AM | | | | | PDT | | + + + + + | Height | 172.7 cm (5' 8") | 10/30/2018 10:27 AM | | | | | PDT | | + + + + + | Body Mass Index | 24.33 | 10/30/2018 10:27 AM | | | | | PDT | | + + + + + documented in this encounter Patient Instructions Patient Instructions John Garcia MD - 10/30/2018 10:30 AM PDTFormatting of t his note might be different from the original. How Bones Heal Bone is living tissue made up of cells. When a bone breaks, cells in the blood kohli to the fractured area. These cells help grownew bone. Bones heal through a gradual process called remodeling. The length of this process depends on general health, age, the type of fracture and how well the injury is cared for. The new bone grows stronger, even after a cast is removed. The fracture callus shrinks and remodels as the bone is used. The fibers are replaced by new bone. At first, the new bone is weak and spongy. This is caroline led a fracture callus. Cells form a network of strong fibers inside the blood clot. These fibers hold bone fragmen ts together. Tissues bleed around the fracture. This forms a blood clot in the space between bone fragme nts. Date Last Reviewed: 11/21/[id number] [employer]. [address] [place] [address]. All righ ts reserved. This information is not intended as a substitute for professional medical care. Always follow your healthcare professional's instructions. documented in this encounter Progress Notes John Garcia MD - 10/30/2018 10:30 AM PDTFormatting of this note might be dif ferent from the original. [facility] POST-OPERATIVE VISIT Pt. Name/Age/: Kaden Liang 78 y.o. 1940 Primary Care Physician: Murphy Jim 1. Closed fracture of shaft of left tibia with routine healing, unspecified fracture morpho logy, subsequent encounter XR Tibia Fibula Left 2 Vw Chief Complaint/Reason for Visit: Follow-up, Office Visit (Post op care of left tibular fracture. DOS 08/03/2018) History of Present Illness: The patient is a pleasant 78 y.o. female who presents for a post-operative visit. Since the surgery, the patient has been doing well overall. She denies any pain. No other interval issues. She reports that she has been using her boot. She has been walking with a walker u p to about 600 feet. She is eager to get out of the boot at this point. Physical Examination: Ht 1.727 m (5' 8") | Wt 72.6 kg (160 lb) | BMI 24.33 kg/m General: Alert, oriented, no acute distress HEENT: Normocephalic, atraumatic Cardiovascular: Regular rate and rhythm Respiratory: Breathing normally at a regular rate Ortho Exam Left lower extremity exam: Mild tenderness at the fracture site. Sensation intact to light touch in the first dorsal w ebspace, medial, lateral, dorsal and plantar foot. Dorsalis pedis and posterior tibial pulse s 2+. Able to plantarflex, dorsiflex, marcelo and invert the ankle. She has passive dorsiflexion past neutral with the knee in extension. Diagnostic Studies: Imaging 2 views of the left tib-fib obtained today demonstrate osseous union of the tibia. I do no t see clear evidence of osseous union of the proximal fibula fracture. Labs- Lab Results Component Value Date NA 136 08/11/2018 K 4.4 08/11/2018 CL 104 08/11/2018 CO2 25 08/11/2018 ANIONGAP 7 08/11/2018 GLU 137 (H) 08/11/2018 BUN 18 08/11/2018 CREA 0.75 08/11/2018 GFRNONAA >60 08/11/2018 CALCIUM 8.6 08/11/2018 WBC 8.6 08/11/2018 HGB 11.3 (L) 08/11/2018 HCT 36.0 08/11/2018 MCV 93.3 08/11/2018 PLT 415 08/11/2018 Assessment and Plan: 1. Closed fracture of shaft of left tibia with routine healing, unspecified fracture morpho logy, subsequent encounter XR Tibia Fibula Left 2 Vw The patient is a pleasant 78 y.o. female who presents for a post-operative visit after the above surgery. At this point, we will have her aloe up as needed. No other interval concern s at this time. She is free to transition back to a shoe. At this point, the biggest funct ional deficit that she has is her chronic cerebellar balance issues. She is living at [facility] at this point. Follow-up: As needed with no x-ray Portions of this report were transcribed using voice recognition software. Every effort wa s made to ensure accuracy; however, inadvertent computerized armature inspector errors may be pre sent. I appreciate the opportunity to help with the management of this patient. John Garcia MD documented in this encounter Plan of Treatment Not on filedocumented as of this encounter Results XR Tibia Fibula Left 2 Vw (10/30/2018 10:25 AM PDT) + + | Specimen | + + | | + + + + + | Narrative | Performed At | + + + | XR TIBIA FIBULA LEFT 2 VW 10/30/2018 10:25 AM HISTORY: LEFT TIBIA | [facility] | | INJURY. COMPARISON: 09/18/2018 FINDINGS: Intact appearance of | | | the antegrade intramedullary tibial gisselle with proximal and distal | | | locking screws. Stable sclerosis and bridging bone formation | | | involving the proximal fibular metaphysis fracture. Interval | | | continued/progressive healing of the distal tibial fracture. Mild | | | surrounding soft tissue swelling. IMPRESSION - No radiographic | | | evidence for any interval complication. Healing fibular and distal | | | tibial fractures and intact appearance of the internal fixation | | | hardware. Stable appearance of the suspected mildly depressed | | | medial tibial plateau fracture. Dictated and Signed by: Jose | | | MD Zachary Electronically signed: 10/30/2018 10:48 AM | | + + + + + | Procedure Note | + + | Se Esquivel Results In - 10/30/2018 10:51 AM PDT XR TIBIA FIBULA LEFT 2 VW 10/30/2018 | | 10:25 AMHISTORY: LEFT TIBIA INJURY.COMPARISON: 09/18/2018FINDINGS: Intact appearance of | | the antegrade intramedullary tibial gisselle withproximal and distal locking screws. Stable | | sclerosis and bridging bone formationinvolving the proximal fibular metaphysis fracture. | | Intervalcontinued/progressive healing of the distal tibial fracture. Mild | | surroundingsoft tissue swelling.IMPRESSION -No radiographic evidence for any interval | | complication.Healing fibular and distal tibial fractures and intact appearance of | | theinternal fixation hardware.Stable appearance of the suspected mildly depressed medial | | tibial plateaufracture.Dictated and Signed by: Jose Sharma MD Electronically | | signed: 10/30/2018 10:48 AM | |soft tissue swelling. | | | |IMPRESSION - | |No radiographic evidence for any interval complication. | | | |Healing fibular and distal tibial fractures and intact appearance of the | |internal fixation hardware. | | | |Stable appearance of the suspected mildly depressed medial tibial plateau | |fracture. | | | |Dictated and Signed by: Jose Sharma MD | | Electronically signed: 10/30/2018 10:48 AM | + + + +---------+ + + | Performing | Address | City/State/Zipcode | Phone Number | | Organization | | | | + +---------+ + + | [facility] | | | | + +---------+ + + documented in this encounter Visit Diagnoses + + | Diagnosis | + + | Closed fracture of shaft of left tibia with routine healing, unspecified fracture | | morphology, subsequent encounter - Primary | + + documented in this encounter
--- OUTSIDE RECORDS SUMMARY | ~2020-03-28 | XMS | Encounter Summary ---
Demographics + + + | Address | [address] | | | [place] [address] | + + + | Home Phone | | + + + | Preferred Language | Unknown | + + + | Marital Status | | + + + | Worship Affiliation | Unknown | + + + | Race | White | + + + | Ethnic Group | Not or | + + + Author + + + | Author | [facility] | | | and [place] | + + + | Organization | [facility] | | | and [...] | | | | | [place] [address] | | + + + + + Care Team Providers + +------+ + | Care Demolition Expert Name | Role | Phone | + +------+ + | Murphy Jim | PCP | | | MD | | | + +------+ + Encounter Details +--------+ + + + + | Date | Type | Department | Care Team | Description | +--------+ + + + + | 08/11/ | Lab | [facility] | [facility] | Anemia due to other | | 2019 | Requisition | [facility] | MD Y[address] | disorders of | | | | [address] [place] | [address] [place] | glutathione | | | | [place], [place] | [place] [address] | metabolism (HCC); | | | | [address] | [phone] | Anemia | | | | [phone] | | | +--------+ + + + [...] | + +--------+ + + + | CBC NO DIFFERENTIAL | Routin | 08/11/2018 | Anemia due to | Results for this | | | e | 12:20 PM | other disorders of | procedure are in the | | | | PST | glutathione | results section. | | | | | metabolism (HCC) | | | | | | Anemia | | + +--------+ + + + | BASIC METABOLIC | Routin | 08/11/2018 | Anemia due to | Results for this | | PANEL | e | 12:20 PM | other disorders of | procedure are in the | | | | PST | glutathione | results section. | | | | | metabolism (HCC) | | | | | | Anemia | | + +--------+ + + + documented in this encounter Results Basic Metabolic Panel (08/11/2018 12:20 PM PST) + + + + + + | Component | Value | Ref Range | Performed | Pathologist | | | | | At | Signature | + + + + + + | Na | 136 | 136 - 149 | [facility] | | | | | mmol/L | [facility] | | [facility] | | | | [facility] - | | | | | | LABORATORY | | + + + + + + | K | 4.4 | 3.5 - 5.1 | [facility] | | | | | mmol/L | [facility] | | [facility] | [facility] | | | | | | [facility] - | | | | | | LABORATORY | | + + + + + + | Cl | 104 | 98 - 109 mmol/L | [facility] | | | | | | [facility] | [facility] | [facility] | | | | | | [facility] - | | | | | | LABORATORY | | + + + + + + | CO2 | 25 | 24 - 31 mmol/L | [facility] | | | | | | [facility] | [facility] | [facility] | | | | | | [facility] - | | | | | | LABORATORY | | + + + + + + | Anion Gap | 7 | 3 - 16 mmol/L | [facility] | | | | | | [facility] | | [facility] | [facility] | | | | | | [facility] - | | | | | | LABORATORY | | + + + + + + | Glucose | 137 (H) | 70 - 109 mg/dL | [facility] | | | | | | [facility] | | | | | | [facility] | | | | | | CENTER - | | | | | | LABORATORY | | + + + + + + | BUN | 18 | 7 - 18 mg/dL | [facility] | | | | | | [facility] | | | | | | [facility] | | | | | | C[facility] - | | | | | | LABORATORY | | + + + + + + | Creatinine | 0.75 | 0.60 - 1.30 | [facility] | | | | | mg/dL | [facility] | | | | | | [facility] | | | | | | [facility] - | | | | | | LABORATORY | | + + + + + + | eGFR, | >60Comment: GLOMERULAR | >=60 | [facility] | | | non- | FILTRATION | mL/min/1.73m2 | [facility] | | | [place] | RATE,ESTIMATED | | MEDICAL | | | | mL/min/1.64m9Vvma than | | CENTER - | | | | 60 Chronic kidney | | LABORATORY | | | | disease,if found over a | | | | | | 3-month period.Less than | | | | | | 15 Kidney failureFor | | | | | | | | | | | | Americans,multiply the | | | | | | calculated GFR by 1.21. | | | | | | | | | | + + + + + + | Calcium | 8.6 | 8.3 - 10.5 | [facility] | | | | | mg/dL | [facility] | [facility] | | | | | | [facility] - | | | | | | LABORATORY | | + + + + + + | BUN/Creatin | 24.0 | | [facility] | | | ine Ratio | | | [facility] | | | | | | [facility] | | | | | | CENTER - | | | | | | LABORATORY | | + + + + + + + + | Specimen | + + | Blood | + + + + + + + | Performing | Address | City/State/Zipcode | Phone Number | | Organization | | | | + + + + + | [facility] | [address] | [place] | [phone] | | [facility] | | [address] | | | - LABORATORY | | | | + + + + + CBC no Differential (08/11/2018 12:20 PM PST) + + + + + + | Component | Value | Ref Range | Performed | Pathologist | | | | | At | Signature | + + + + + + | White Blood | 8.6 | 4.0 - 11.0 K/uL | [facility] | | | Cells | | | [facility] | | | | | | [facility]ICAL | | | | | | CENTER - | | | | | | LABORATORY | | + + + + + + | Red Blood | 3.86 | 3.70 - 5.20 | [facility] | | | Cells | | M/uL | [facility] | | | | | | MEDICAL | | | | | | CENTER - | | | | | | LABORATORY | | + + + + + + | Hemoglobin | 11.3 (L) | 11.5 - 16.0 | [facility] | | | | | g/dL | [facility] | | | | | | MEDICAL | | | | | | CENTER - | | | | | | LABORATORY | | + + + + + + | Hematocrit | 36.0 | 34.0 - 47.0 % | [facility] | | | | | | [facility] | | | | | | [facility] | | | | | | C[facility] - | | | | | | LABORATORY | | + + + + + + | MCV | 93.3 | 83.0 - 101.0 fL | [facility] | | | | | | [facility] | | [facility] | [facility] | | | | | | [facility] - | | | | | | LABORATORY | | + + + + + + | MCH | 29.3 | 28.0 - 35.0 pg | [facility] | | | | | | [facility] | | [facility] | | [facility] | | | | | | [facility] - | | | | | | LABORATORY | | + + + + + + | MCHC | 31.4 (L) | 32.0 - 36.0 | [facility] | | | | | g/dL | [facility] | | | | | | [facility] | | | | | | CENTER - | | | | | | LABORATORY | | + + + + + + | RDW-CV | 13.4 | <15.0 % | [facility] | | | | | | [facility] | [facility] | [facility] | | | | | | [facility] - | | | | | | LABORATORY | | + + + + + + | RDW-SD | 45.7 | 35.1 - 46.3 fL | [facility] | | | | | | [facility] | [facility] | [facility] | | | | | | [facility] - | | | | | | LABORATORY | | + + + + + + | Platelet | 415 | 140 - 440 K/uL | [facility] | | | Count | | | [facility] | [facility] | | | | | | [facility] - | | | | | | LABORATORY | | + + + + + + | MPV | 8.8 | 6.5 - 12.4 fL | [facility] | | | | | | [facility] | [facility] | | | | | | [facility] - | | | | | | LABORATORY | | + + + + + + | % nRBC | 0 | 0 - 2 per 100 | [facility] | | | | | WBC's | [facility] | | | | | | [facility] | | | | | | CENTER - | | | | | | LABORATORY | | + + + + + + | Absolute | 0.00 | 0.00 - 0.01 | [facility] | | | nRBC | | K/uL | [facility] | | | | | | [facility] | | | | | | CENTER - | | | | | | LABORATORY | | + + + + + + + + | Specimen | + + | Blood | + + + + + + + | Performing | Address | City/State/Zipcode | Phone Number | | Organization | | | | + + + + + | [facility] | 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
--- OUTSIDE RECORDS SUMMARY | ~2020-03-28 | XMS | Encounter Summary ---
Demographics + + + | Address | [address] | | | [place] [address] | + + + | Home Phone | | + + + | Preferred Language | Unknown | + + + | Marital Status | | + + + | Mu-Ism Affiliation | Unknown | + + + | Race | White | + + + | Ethnic Group | Not or | + + + Author + + + | Author | [facility] | | | and [place] | + + + | Organization | [facility] | | | [...] | | | | | [place] [address] | | + + + + + Care Team Providers + +------+ + | Care Tower Equipment Installer Name | Role | Phone | + +------+ + PCP | Unavailable | + +------+ + Reason for Visit + +--------+ + | Reason | Onset | Comments | | | Date | | + +--------+ + | Leg Injury | 08/06/ | | | | 2018 | | + +--------+ + Encounter Details +--------+ + + + + | Date | Type | Department | Care Team | Description | +--------+ + + + + | 08/06/ | Telephone | [facility] | Petros Helms | Leg Injury | | 2019 | | ORTHOPEDIC SURGERY | MD [address] | | | | | [address] | [place] | | | | | [place] | [address] | | | | | [address] | | | | | | [phone] | | | +--------+ + + + [...] + + documented as of this encounter Miscellaneous Notes Telephone Encounter - Lora Butler Medical Assistant - 08/08/2018 11:02 AM PSTSenika Jiménez lectronically signed by Dennis Pizarro Assistant at 08/08/2018 11:03 AM PSTTelephone Encounter - Toña Ramos - 08/08/2018 10:47 AM PSTPatient scheduled for 08/21/18 w/ Dr Scott velazquez for suture removal. Is this an ok date for suture removal? Please advise and let me k now as the patient is being transported to [facility]. elephone Encounter - Lora Butler Medical Assistant - 07/24 9:39 AM PSTPatient is not scheduled elephone Encounter - Toña Ramos - 08/07/2018 5:32 PM PSTDr Garcia will take patient on. Mora has been notified. DATE/TIME: 08/07/2018 17: 34 elephone Encounter - Lila Martinez - 08/07/2018 1:29 PM PSTPer Sister Mora patient is ok with seeing Dr garcia for post op care if possible. Please advise and call [phone] susie d by Lila Martinez at 08/07/2018 1:31 PM PSTTelephone Encounter - Lora Butler Medica l Academic Intern - 08/07/2018 11:34 AM PSTFormatting of this note might be different from the betzaida ginal. Petros Helms MD You 6 minutes ago (11:27) If she need immediate care I am probably not the one because I am gone 08/12 to 09/09. Zuleyma r, if you can get her in before I leave and she has no pressing issues then it's probably OK . (Routing comment) elephon e Encounter - Lora Butler Subgrade Tester - 08/07/2018 10:37 AM PSTPLEASE SEE BELOW. El ectronically signed by Lora Butler Subgrade Tester at 08/07/2018 10:37 AM PSTTelephone E ncounter - Toña Ramos - 08/07/2018 9:41 AM LIGIA WAS CONTACTED AND ASKED IF DR Miguel Ángel PINK IS NOT ABLE TO TAKE ON WE CAN SEE IF DR GARCIA WILL TAKE ON PATIENT. Electronicall y signed by Toña Ramos at 08/07/2018 9:42 AM PSTTelephone Encounter - Toña Ramos - 08/06/2018 4:05 PM PSTPatient sister Mora called stating that patient is coming home and needs to be near a good Orthopedic. She is staying in [facility] and will be needing po st op care for a left tibia injury. Xrays have been pushed to [facility] and op report and record s have been requested. Patient is going to be at [facility]. Please call Mor[place] at [phone] documented in this en counter Plan of Treatment Not on filedocumented as of this encounter Visit Diagnoses Not on filedocumented in this encounter"
--- OUTSIDE RECORDS SUMMARY | ~2020-03-28 | XMS | Clinical Summary ---
Demographics + + + | Address | [address] | | | [place] [address] | + + + | Home Phone | | + + + | Preferred Language | Unknown | + + + | Marital Status | | + + + | Zoroastrianism Affiliation | Unknown | + + + | Race | White | + + + | Ethnic Group | Not or | + + + Author + + + | Author | [facility] | | | and [place] | + + + | Organization | [facility] | | | and [...] | | | | | [place] [address] | | + + + + + Care Team Providers + +------+ + | Care Workshop Manager Name | Role | Phone | + +------+ + | Murphy Jim | PCP | | | MD | | | + +------+ + Allergies + + + + + + | Active Allergy | Reactions | Severity | Noted | Comments | | | | | Date | | + + + + + + | Sulfa Antibiotics | Other (See Comments) | | 01/25/20 | | | | | | 19 | | + + + + + + Medications + + + +---------+------+------+-------+ | Medication | Sig | Dispensed | Refills | Star | End | Statu | | | | | | t | Date | s | | | | | | Date | | | + + + +---------+------+------+-------+ | mycophenolate | Take 1,000 mg by | | 0 | | | Activ | | (CELLCEPT) 500 MG | mouth 2 times daily. | | | | | e | | tablet | | | | | | | + + + +---------+------+------+-------+ | alendronate | take 1 tablet by | | 0 | 10/0 | | Activ | | (FOSAMAX) 70 mg | mouth every week | | | 1/20 | | e | | tablet | | | | 18 | | | + + + +---------+------+------+-------+ | | take 1 tablet by | | 0 | 10/0 | | Activ | | HYDROcodone-acetamin | mouth four times a | | | 4/20 | | e | | ophen (NORCO) 5-325 | day if needed for | | | 18 | | | | mg per tablet | pain | | | | | | + + + +---------+------+------+-------+ | methylPREDNISolone | take by mouth as | | 0 | 10/0 | | Activ | | (MEDROL DOSEPAK) 4 | directed PER PACKAGE | | | 4/20 | | e | | mg tablet | DIRECTIONS with | | | 18 | | | | | food | | | | | | + + + +---------+------+------+-------+ Active Problems + + + | Problem | Noted Date | + + + | Closed fracture of shaft of left tibia with routine healing, | 09/18/2018 | | unspecified fracture morphology, subsequent encounter | | + + + | Dysphagia | 01/16/2017 | + + + Social History + +-------+ [...] on file | | + + + Last Filed Vital Signs + + + [...] | | + + + + + Plan of Treatment + + + + + | Health Maintenance | Due Date | Last | Comments | | | | Done | | + + + + + | Med Mgmt: HBA1C | | | | | | 9 | | | + + + + + | Med Mgmt: HDL | | | | | | 9 | | | + + + + + | Med Mgmt: LDL | | | | | | 9 | | | + + + + + | Med Mgmt: Total | | | | | Cholesterol | 9 | | | + + + + + | Med Mgmt: | | | | | Triglycerides | 9 | | | + + + + + | Medication | | | | | Management | 9 | | | + + + + + | Vaccine: | | | | | Dtap/Tdap/Td (1 - | 8 | | | | Tdap) | | | | + + + + + | Vaccine: | | | | | Pneumococcal 65+ (1 | 4 | | | | of 1 - PPSV23) | | | | + + + + + | Vaccine: Zoster (2 | | 02/21/20 | | | of 3) | 7 | 07 | | + + + + + | Adult Annual | | | | | Wellness Visit | 9 | | | + + + + + | Med Mgmt: Cr | | 08/11/19 | | | | 0 | 19 | | + + + + + | Med Mgmt: HCT | | 08/11/19 | | | | 0 | 19 | | + + + + + | Med Mgmt: HGB | | 08/11/19 | | | | 0 | 19 | | + + + + + | Med Mgmt: PLT | | 08/11/19 | | | | 0 | 19 | | + + + + + | Med Mgmt: WBC | | 08/11/19 | | | | 0 | 19 | | + + + + + | Med Mgmt: eGFR | | 08/11/19 | | | | 0 | 19 | | + + + + + | Vaccine: Influenza | | 04/16/20 | | | (#1) | 0 | 19 | | + + + + + Results Not on filefrom Last 3 Months Insurance + +--------+ +--------+ +---------+--------+ | Payer | Benefi | Subscriber | Effect | Phone | Address | Type | | | t Plan | ID | hattie | | | | | | / | | Dates | | | | | | Group | | | | | | + +--------+ +--------+ +---------+--------+ | MEDICARE | MEDICA | [id number] | 01/22/20 | [phone] | | Medica | | | RE | | 04-Pre | 5 | | re | | | PART A | | sent | | | | | | AND B | | | | | | + +--------+ +--------+ +---------+--------+ | [employer] | MUTUAL | [id number] | 12/23/19 | [phone] | | Indemn | | | AND | | 20-Pre | 0 | | ity | | | [place] | | sent | | | | | | [place] | | | | | | | | MDCR | | | | | | | | SUPPL | | | | | | + +--------+ +--------+ +---------+--------+ + +--------+ +--------+ + + | Guarantor Name | Accoun | Relation to | Date | Phone | Billing Address | | | t Type | Patient | of | | | | | | | | | | + +--------+ +--------+ + + | Kaden Liang | Person | Self [birth year] | [address] | | | al/Fam | | 1940 | [phone] | [place] [address] | | | joselyn | | | 6 (Home) | | + +--------+ +--------+ + + | Kaden Liang | Person | Self [birth year] | [address] | | | al/Fam | | 1940 | [phone] | [place] [address] | | | joselyn | | | 6 (Home) | | | | | | | [phone] | | | | | | | 0 (Work) | | + +--------+ +--------+ + + Advance Directives + + + + + | Type | Date Recorded | Patient | Explanation | | | | Secret Service Agent | | + + + + + | Power of | | | | | Physical Therapy Director | | | | + + + + + | Advance | | | | | Directive | | | | + + + + +
--- OUTSIDE RECORDS SUMMARY | ~2020-03-28 | XMS | Encounter Summary ---
Demographics + + + | Address | [address] | | | [place] [address] | + + + | Home Phone | | + + + | Preferred Language | Unknown | + + + | Marital Status | | + + + | Anabaptism Affiliation | Unknown | + + + | Race | White | + + + | Ethnic Group | Not or | + + + Author + + + | Author | [facility] | | | and [place] | + + + | Organization | [facility] | | [...] | | | | | [place] [address] | | + + + + + Care Team Providers + +------+ + | Care Restrictive Preparation Operator Name | Role | Phone | + +------+ + PCP | Unavailable | + +------+ + Encounter Details +--------+ + + + + | Date | Type | Department | Care Team | Description | +--------+ + + + + | 01/21/ | Hospital | [facility] | [facility] | | | 2010 - | Encounter | CONVERSION DEP [address] | MD [address] | | | | | [place] | [address] | | | 02/20/ | | [place] | [place] | | | 2010 | | [address] | [address] | | | | | [phone] | [phone] | | | | | | | | +--------+ + + + [...]
--- OUTSIDE RECORDS SUMMARY | ~2020-03-28 | XMS | Encounter Summary ---
Demographics + + + | Address | [address] | | | [place] [address] | + + + | Home Phone | | + + + | Preferred Language | Unknown | + + + | Marital Status | | + + + | Shinto Affiliation | Unknown | + + + | Race | White | + + + | Ethnic Group | Not or | + + + Author + + + | Author | [facility] | | | and [place] | + + + | Organization | [facility] | | | [...] | | | | | [place] [address] | | + + + + + Care Team Providers + +------+ + | Care Solaris Administrator Name | Role | Phone | + [...] | | | | NIKKI CRUZJame | [place] [address] | | | | | [place] [address] | | | | | | [phone] | | | +--------+ + + + [...] | + +--------+ + + + | CT ANKLE LEFT WO | Routin | 07/30/2018 | | Results for this | | CONTRAST | e | 12:00 AM | | procedure are in the | | | | PST | | results section. | + +--------+ + + + documented in this encounter Results CT Ankle Left wo Contrast (07/30/2018 12:00 AM PST) + + | Specimen | [...]
--- OUTSIDE RECORDS SUMMARY | ~2020-03-28 | XMS | Encounter Summary ---
Demographics + + + | Address | [address] | | | [place] [address] | + + + | Home Phone | | + + + | Preferred Language | Unknown | + + + | Marital Status | | + + + | Temple Affiliation | Unknown | + + + | Race | White | + + + | Ethnic Group | Not or | + + + Author + + + | Author | [facility] | | | and [place] | + + + | Organization | [facility] | | | [...] | | | | | [place] [address] | | + + + + + Care Team Providers + +------+ + | Care Dish Cloth Inspector Name | Role | Phone | + +------+ + | Murphy Jim | PCP | | | MD | | | + +------+ + Encounter Details +--------+ + + + + | Date | Type | Department | Care Team | Description | +--------+ + + + + | 04/09/ | Hospital | [facility] | John Garcia | Closed fracture of | | 2019 | Encounter | [facility] | MD [address] | shaft of left tibia | | | | [address] [place] | [address] [place] | with routine | | | | [place], [place] | [place] [address] | healing, unspecified | | | | [address] | [phone] | fracture | | | | [phone] | | morphology, | | | | | | subsequent encounter | +--------+ + + + + Social [...] XR TIBIA FIBULA LEFT | Routin | 10/30/2018 | Closed fracture of | Results for this | | 2 VW | e | 10:25 AM | shaft of left tibia | procedure are in the | | | | PDT | with routine | results section. | | | | | healing, unspecified | | | | | | fracture | | | | | | morphology, | | | | | | subsequent encounter | | + +--------+ + + + [...] Note | + + | Alvin, Rad Results In - 10/30/2018 10:51 AM PDT [...] unspecified fracture | | morphology, subsequent encounter | + + documented in this encounter"
--- OUTSIDE RECORDS SUMMARY | ~2020-03-28 | XMS | Encounter Summary ---
Demographics + + + | Address | [address] | | | [place] [address] | + + + | Home Phone | | + + + | Preferred Language | Unknown | + + + | Marital Status | | + + + | Temple Affiliation | Unknown | + + + | Race | White | + + + | Ethnic Group | Not or | + + + Author + + + | Author | [facility] | | | and [place] | + + + | Organization | [facility] | | | [...] | | | | | [place] [address] | | + + + + + Care Team Providers + +------+ + | Care Licensed Prosthetist Name | Role | Phone | + [...] | | | | NIKKI CRUZJame | [place] [address] | | | | | [place] [address] | | | | | | [phone] | | | +--------+ + + + [...] + +--------+ + + + | CT HEAD WO CONTRAST | Routin | 07/29/2018 | | Results for this | | | e | 12:00 AM | | procedure are in the | | | | PST | | results section. | + +--------+ + + + documented in this encounter Results CT Head wo Contrast (07/29/2018 12:00 AM PST) + + | Specimen [...]
--- OUTSIDE RECORDS SUMMARY | ~2020-03-28 | XMS | Encounter Summary ---
Demographics + + + | Address | [address] | | | [place] [address] | + + + | Home Phone | | + + + | Preferred Language | Unknown | + + + | Marital Status | | + + + | Adventism Affiliation | Unknown | + + + | Race | White | + + + | Ethnic Group | Not or | + + + Author + + + | Author | [facility] | | | and [place] | + + + | Organization | [facility] | | | [...] | | | | | [place] [address] | | + + + + + Care Team Providers + +------+ + | Care Test Engine Operator Name | Role | Phone | [...] | | | | NIKKI CRUZJame | [place] [address] | | | | | [place] [address] | | | | | | [phone] | | | +--------+ + + + [...] | + +--------+ + + + | MRI FOOT LEFT W WO | Routin | 08/02/2018 | | Results for this | | CONTRAST | e | 12:00 AM | | procedure are in the | | | | PST | | results section. | + +--------+ + + + documented in this encounter Results MRI Foot Left w wo Contrast (08/02/2018 12:00 AM PST) + + | Specimen [...]
--- OUTSIDE RECORDS SUMMARY | ~2020-03-28 | XMS | Encounter Summary ---
Demographics + + + | Address | [address] | | | [place] [address] | + + + | Home Phone | | + + + | Preferred Language | Unknown | + + + | Marital Status | | + + + | Lutheran Affiliation | Unknown | + + + | Race | White | + + + | Ethnic Group | Not or | + + + Author + + + | Author | [facility] | | | and [place] | + + + | Organization | [facility] | | | [...] | | | | | [place] [address] | | + + + + + Care Team Providers + +------+ + | Care Decision Support Manager Name | Role | Phone | + +------+ + PCP | Unavailable | + +------+ + Encounter Details +--------+ + + + + | Date | Type | Department | Care Team | Description | +--------+ + + + + | 01/04/ | Hospital | [facility] | Martin Sutherland | Other Specified | | 2010 - | Encounter | CONVERSION DEP [address] | MD [address] | Rehabilitation | | | | [place] | [address]ita [address] | Procedure; | | 01/20/ | | [place] | [place] | Vestibular | | 2010 | | [address] | [address] | neuronitis | | | | [phone] | [phone] | | | | | | | [...] filedocumented as of this encounter Visit Diagnoses + + | Diagnosis | + + | Other specified rehabilitation procedure(V57.89) Other specified rehabilitation | | procedure | + + | Vestibular neuronitis | + + documented in this encounter"
--- OUTSIDE RECORDS SUMMARY | ~2020-03-28 | XMS | Encounter Summary ---
Demographics + + + | Address | [address] | | | [place] [address] | + + + | Home Phone | | + + + | Preferred Language | Unknown | + + + | Marital Status | | + + + | Mormon Affiliation | Unknown | + + + | Race | White | + + + | Ethnic Group | Not or | + + + Author + + + | Author | [facility] | | | and [place] | + + + | Organization | [facility] | | | and [...] | | | | | [place] [address] | | + + + + + Care Team Providers + +------+ + | Care Brineyard Supervisor Name | Role | Phone | + [...] | | | | NIKKI CRUZJame | [place] [address] | | | | | [place] [address] | | | | | | [phone] | | | +--------+ + + + [...] XR TIBIA FIBULA LEFT | Routin | 07/29/2018 | | Results for this | | 2 VW | e | 12:05 AM | | procedure are in the | | | | PST | | results section. | + +--------+ + + + documented in this encounter Results XR Tibia Fibula Left 2 Vw (07/29/2018 12:05 AM PST) + + | Specimen [...]
--- OUTSIDE RECORDS SUMMARY | ~2020-03-28 | XMS | Encounter Summary ---
Demographics + + + | Address | [address] | | | [place] [address] | + + + | Home Phone | | + + + | Preferred Language | Unknown | + + + | Marital Status | | + + + | Mu-Ism Affiliation | Unknown | + + + | Race | White | + + + | Ethnic Group | Not or | + + + Author + + + | Author | [facility] | | | and [place] | + + + | Organization | [facility] | | | [...] | | | | | [place] [address] | | + + + + + Care Team Providers + +------+ + | Care Him Director Name | Role | Phone | + +------+ + | Murphy Jim | PCP | | | MD | | | + +------+ + Encounter Details +--------+ + + + + | Date | Type | Department | Care Team | Description | +--------+ + + + + | 02/18/ | Orders Only | [facility] | Provider, | | | 2019 | | SYSTEM GENERIC OP | MD [address] | | | | | CONVERSION [address] | [place] | | | | | [address] [place], [place] | [place] [address] | | | | | [address] | | | | | | [phone] | | | +--------+ + + + [...]
--- OUTSIDE RECORDS SUMMARY | ~2020-03-28 | XMS | Encounter Summary ---
Demographics + + + | Address | [address] | | | [place] [address] | + + + | Home Phone | | + + + | Preferred Language | Unknown | + + + | Marital Status | | + + + | Sabianist Affiliation | Unknown | + + + [...] | | | | | [place] [address] | | + + + + + Care Team Providers + +------+ + | Care Vest Front Presser Name | Role | Phone | + +------+ + | Murphy Jim | PCP | | | MD | | | + +------+ + Reason for Visit + + + | Reason | Comments | + + + | Follow-up, Office | Taking over post op care | | Visit | | + + + | Fracture | Left Tibular. DOS 08/03/2018 | + + + Encounter Details +--------+---------+ + + + | Date | Type | Department | Care Team | Description | +--------+---------+ + + + | 09/18/ | Office | [facility] | John Garcia | S/p tibial fracture | | 2019 | Visit | ORTHOPEDIC SURGERY | MD [address] | (Primary Dx); Closed | | | | [address] [facility] | [facility] | fracture of shaft | | | | [facility] ME | [place] [address] | of left tibia with | | | | [address] | [phone] | routine healing, | | | | [phone] | | unspecified fracture | | | | | | morphology, | | | | | | subsequent encounter | +--------+---------+ + + + Social History [...] Weight | 72.6 kg (160 lb) | 09/18/2018 9:31 AM | | | | | PST | | + + + + + | Height | 172.7 cm (5' 8") | 09/18/2018 9:31 AM | | | | | PST | | + + + + + | Body Mass Index | 24.33 | 09/18/2018 9:31 AM | | | | | PST | | + + + + + documented in this encounter Patient Instructions Patient Instructions John Garcia MD - 09/18/2018 9:58 AM PSTFormatting of t his note might be different [...] how well the injury is cared for. Tissues bleed around the fracture. This forms a blood clot in the space between bone fragme nts. Cells form a network of strong fibers inside the blood clot. These fibers hold bone fragmen ts together. The fibers are replaced by new bone. At first, the new bone is weak and spongy. This is caroline led a fracture callus. The new bone grows stronger, even after a cast is removed. The fracture callus shrinks as t he bone is used. Date Last Reviewed: 04/24/[id number] [employer]. [address] [place] [address]. All righ ts reserved. This information is not intended as a substitute for professional medical care. Always follow your healthcare professional's instructions. documented in this encounter Progress Notes John Garcia MD - 09/18/2018 9:30 AM PSTFormatting of this note might be dif ferent from the original. [facility] POST-OPERATIVE VISIT Pt. Name/Age/: Kaden Liang 78 y.o. 1940 Primary Care Physician: Murphy Jim 1. S/p tibial fracture XR Tibia Fibula Left 2 Vw Chief Complaint/Reason for Visit: Follow-up, Office Visit (Taking over post op care) and Fracture (Left Tibular. DOS 9) History of Present Illness: The patient is a pleasant 78 y.o. female who presents for a post-operative visit. Since the surgery, the patient has been doing well overall. She is still using a walker at baseline as she has once issues. She reports that she is able to walk several 100 feet with a walker . She does not have significant pain in her left leg when she does so. She does not have a ny concerns about the wounds. There have been no other issues. Physical Examination: Ht 1.727 m (5' 8") [...] dorsiflex, marcelo and invert the ankle. Her wounds are clean, dry, and intact there are well-healed. Diagnostic Studies: Imaging 2 views of the left tibia obtained today demonstrate some mild early callus formation. Thi s is best seen anteriorly on the lateral and along the lateral side of the tibia on the AP v iew. There has been no loss of reduction Labs- Lab Results Component Value Date NA [...] surgery. At this point, we will have the patient follow-up in 6 weeks. She may be ramone ghtbearing as tolerated on the left lower extremity. From my standpoint, she is okay to go home whenever that is deemed safe. No other interval issues. Follow-up: 6 weeks with 2 views of the left tibia Portions of this report were transcribed using voice recognition software. Every effort wa s made to ensure accuracy; however, inadvertent computerized reinforcing iron worker helper errors may be pre sent. I appreciate [...] + | Alvin, Rad Results In - 09/18/2018 1:01 PM PST [...] fracture of lower leg | + + | Closed fracture of shaft of left tibia with routine healing, unspecified fracture | | morphology, subsequent encounter | + + documented in this encounter
--- OUTSIDE RECORDS SUMMARY | ~2020-03-28 | XMS | Clinical Summary ---
Demographics + + + | Address | [address] | | | [place] [address] | + + + | Home Phone | | + + + | Preferred Language | Unknown | + + + | Marital Status | | + + + | Judaism Affiliation | Unknown | + + + | Race | White | + + + | Ethnic Group | Not or | + + + Author + + + | Organization | Unknown | + + + | Address | Unknown | + + + | Phone | Unavailable | + + + Care Team Providers + +------+ + | Care Hospitality Housekeeper Name | Role | Phone | + +------+ + PCP | Unavailable | + +------+ + Source Comments BUTCH is fully live on both [facility] Ambulatory and [facility] InPatient.[facility] Allergies Not on File Medications Not on file Active Problems Not [...] + + + Last Filed Vital Signs Not on file Plan of Treatment + + +-------+ + | Health Maintenance | Due Date | Last | Comments | | | | Done | | + + +-------+ + | Pneumococcal | | | | | vaccination (1 of 1 | 4 | | | | - PPSV23) | | | | + + +-------+ + | Influenza (Flu) | | | | | vaccination (#1) | 0 | | | + + +-------+ + Results Not on filefrom Last 3 Months"
--- OUTSIDE RECORDS SUMMARY | ~2020-03-28 | XMS | Encounter Summary ---
Demographics + + + | Address | [address] | | | [place] [address] | + + + | Home Phone [...] | | | | | [place] [address] | | + + + + + Care Team Providers + +------+ + | Care Swatch Paster Name | Role | Phone | + +------+ + PCP | Unavailable | + +------+ + Encounter Details +--------+ + + + + | Date | Type | Department | Care Team | Description | +--------+ + + + + | 07/31/ | Hospital | [facility] GENERIC IP | Conversion | Diagnosis unknown | | 2019 | Encounter | CONVERSION DEP [address] | Transaction, | | | | | AIDEE FAULKNER | Provider Unknown | | | | | [place] | [phone] | | | | | [address] | | | | | | [phone] | | | +--------+ + + + [...] + +--------+ + + + | CT LOWER EXTREMITY | Routin | 07/31/2018 | | Results for this | | WO CONTRAST LEFT | e | 3:00 PM | | procedure are in the | | | | PST | | results section. | + +--------+ + + + documented in this encounter Results CT Lower Extremity Left Wo Contrast (07/31/2018 3:00 PM PST) + + | Specimen | + + | | + + + + + | Narrative | Performed At | + + + | This is a non-reportable procedure without a radiologist report and | | | is used for image storage only | | + + + + + | Procedure Note | + + | Alvin, Rad Conversion - 03/05/2019 6:41 PM PDT This is a non-reportable procedure | | without a radiologist report and isused for image storage only | + + documented in this encounter Visit Diagnoses + + | Diagnosis | + + | Diagnosis unknown Other unknown and unspecified cause of morbidity or mortality | + + documented in this encounter"
--- OUTSIDE RECORDS SUMMARY | ~2020-03-28 | XMS | Encounter Summary ---
Demographics + + + | Address | [address] | | | [place] [address] | + + + | Home Phone | | + + + | Preferred Language | Unknown | + + + | Marital Status | | + + + | Evangelical Affiliation | Unknown | + + + | Race | White | + + + | Ethnic Group | Not or | + + + Author + + + | Author | [facility] | | | and [place] | + + + | Organization | [facility] | | | [...] | | | | | [place] [address] | | + + + + + Care Team Providers + +------+ + | Care Veterinary Technician Name | Role | Phone | + +------+ + PCP | Unavailable | + +------+ + Encounter Details +--------+ + + + + | Date | Type | Department | Care Team | Description | +--------+ + + + + | 07/27/ | [facility] | [facility] | Jair Bradley | | | 2011 | Encounter | MED CTR XRAY [address] | [address] | | | | | [place] | [facility] [address] | | | | | [place] [address] | [place] [address] | | | | | [phone] | [phone] | | | | | | | [...] + +--------+ + + + | MRI BRAIN W WO | | 07/27/2011 | | Results for this | | CONTRAST | | 10:05 AM | | procedure are in the | | | | PST | | results section. | + +--------+ + + + documented in this encounter Results MRI Brain w wo Contrast (07/27/2011 10:05 AM PST) + + | Specimen | + + | | + + + + + | Narrative | Performed At | + + + | [facility] Diagnostic Imaging Department | [facility] | | [address] [facility] | [facility] | | MRI OF THE BRAIN WITH AND WITHOUT | DIAG IMG | | CONTRAST: 07/27/2011 CLINICAL HISTORY: AUTOIMMUNE ATAXIA. | | | TECHNIQUE: Multiplanar, multisequence imaging of the brain before | | | and after the administration of 10 mL Magnevist intravenously are | | | reviewed. COMPARISON: [facility] MRI of May 04, | | | 2010. FINDINGS: There is no intra or extra-axial hemorrhage | | | or midline shift. The ventricular spaces, CSF cisterns and sulci | | | show a minimal diffuse prominence suggesting early atrophy. The CSF | | | space around the cerebellum may be slightly greater relative to the | | | superior CSF spaces. No other features of ce rebellar atrophy are | | | appreciated. There is a small amount of symmetric high T2 and | | | FLAIR signal in the periventricular white matter and in the superior | | | subcortical white matter. All of these lesions are small punctate | | | foci, which are n ot visible on T1. This would be the typical | | | appearance of gliotic change. In this age group and in this | | | pattern, this would be most typical for microvascular ischemic foci. | | | No gliotic foci are seen i n the cerebellum. There is a single | | | small area of low signal on the GRE sequences in the right poste rior | | | parietal region (images 7 and 8, of series 7). These follow a | | | linear course and suggest a promi nent vessel, probably vein in this | | | location with the low signal secondary to the contained hemosideri n. | | | No abnormality or enhancement is seen in this location on the other | | | sequences. No mass lesions are present. The post contrast | | | images show no areas of abnormal enhancement. Midlin e structures | | | are normal with no Chiari malformation. The pituitary shows a normal | | | appearance and enh ancement. There is mildly increased signal in | | | the mucous membranes of the ethmoid region with no oth er adjacent | | | sinus or bony abnormalities. IMPRESSION: 1. SMALL AMOUNT OF | | | ISCHEMIC/GLIOTIC WHITE MATTER CHANGE COMMENSURATE WITH AGE. 2. | | | MILD SYMMETRIC ATROPHY, POSSIBLY SLIGHTLY MORE PROMINENT IN THE | | | POSTERIOR FOSSA. NO OTHER FEATUR ES OF CEREBELLAR ATROPHY ARE | | | PRESENT. Dictated Date/Time: 07/27/2011 13:38 Transcribed | | | Date/Time: 07/27/2011 14:[address] Freight: | | | <Electronically Signed by Chilo Barker MD> 07/27/111944 | | + + + + + | Procedure Note | + + | Se Esquivel Conversion - 08/30/2013 4:30 PM [facility] | | Diagnostic Imaging Department [address] [facility], [place] | | MRI OF THE BRAIN WITH AND WITHOUT CONTRAST: 07/27/2011 | | CLINICAL HISTORY: AUTOIMMUNE ATAXIA. TECHNIQUE: Multiplanar, multisequence imaging of | | the brain before and after the administration of 10 mL Magnevist intravenously are | | reviewed. COMPARISON: [facility] MRI of May 04, 2011. FINDINGS: There | | is no intra or extra-axial hemorrhage or midline shift. The ventricular spaces, CSF | | cisterns and sulci show a minimal diffuse prominence suggesting early atrophy. The CSF | | space around the cerebellum may be slightly greater relative to the superior CSF spaces. | | No other features of cerebellar atrophy are appreciated. There is a small amount of | | symmetric high T2 and FLAIR signal in the periventricular white matter and in the | | superior subcortical white matter. All of these lesions are small punctate foci, which | | are not visible on T1. This would be the typical appearance of gliotic change. In this | | age group and in this pattern, this would be most typical for microvascular ischemic | | foci. No gliotic foci are seen in the cerebellum. There is a single small area of low | | signal on the GRE sequences in the right posterior parietal region (images 7 and 8, of | | series 7). These follow a linear course and suggest a prominent vessel, probably vein | | in this location with the low signal secondary to the contained hemosiderin. No | | abnormality or enhancement is seen in this location on the other sequences. No mass | | lesions are present. The post contrast images show no areas of abnormal enhancement. | | Midline structures are normal with no Chiari malformation. The pituitary shows a normal | | appearance and enhancement. There is mildly increased signal in the mucous membranes | | of the ethmoid region with no other adjacent sinus or bony abnormalities. IMPRESSION: 1. | | SMALL AMOUNT OF ISCHEMIC/GLIOTIC WHITE MATTER CHANGE COMMENSURATE WITH AGE. 2. MILD | | SYMMETRIC ATROPHY, POSSIBLY SLIGHTLY MORE PROMINENT IN THE POSTERIOR FOSSA. NO OTHER | | FEATURES OF CEREBELLAR ATROPHY ARE PRESENT. Dictated Date/Time: 07/27/2011 | | 13:38Transcribed Date/Time: 07/27/2011 14:08Transcriptionist: <Electronically | | Signed by Chilo Barker MD> 07/27/111944 | | | |No mass lesions are present. The post contrast images show no areas of abnormal enhancemen t. Midlin | |e structures are normal with no Chiari malformation. The pituitary shows a normal appearan ce and enh | |ancement. There is mildly increased signal in the mucous membranes of the ethmoid region w ith no oth | |er adjacent sinus or bony abnormalities. | | | |IMPRESSION: | |1. SMALL AMOUNT OF ISCHEMIC/GLIOTIC WHITE MATTER CHANGE COMMENSURATE WITH AGE. | | | |2. MILD SYMMETRIC ATROPHY, POSSIBLY SLIGHTLY MORE PROMINENT IN THE POSTERIOR FOSSA. NO OT HER FEATUR | |ES OF CEREBELLAR ATROPHY ARE PRESENT. | | | |Dictated Date/Time: 07/27/2011 13:38 | |Transcribed Date/Time: 07/27/2011 14:08 | |[address] Freight: | |<Electronically Signed by Chilo Barker MD> 07/27/111944 | + + + +---------+ + + | Performing | Address | City/State/Zipcode | Phone Number | | Organization | | | | + +---------+ + + | [place] | | | | | [place] | | | | + +---------+ + + documented in this encounter Visit Diagnoses Not on filedocumented in this encounter"
--- OUTSIDE RECORDS SUMMARY | ~2020-03-28 | XMS | Encounter Summary ---
Demographics + + + | Address | [address] | | | [place] [address] | + + + | Home Phone | | + + + | Preferred Language | Unknown | + + + | Marital Status | | + + + | Latter-Day Affiliation | Unknown | + + + | Race | White | + + + | Ethnic Group | Not or | + + + Author + + + | Author | [facility] | + + + | Organization | [facility] | + + + | Address | Unknown | + + + | Phone | Unavailable | + + + Care Team Providers + +------+ + | Care Radar Technician Name | Role | Phone | + +------+ + PCP | Unavailable | + +------+ + Encounter Details +--------+ + + + + | Date | Type | Department | Care Team | Description | +--------+ + + + + | 10/04/ | Outside | Neurophysiology | Murphy Jim | | | 2010 | Referral | EEG at [facility] [address] | MD SERA Koch | | | | Order | [address] | [facility] | | | | | [facility] | [address] | | | | | [place], [address] | [place] [address] | | | | | [place], [place] | [phone] | | | | | [address] | | | | | | [phone] | | | +--------+ + + + [...] | + +--------+ + + + | EEG ROUTINE | Routin | 10/01/2010 | | Results for this | | | e | | | procedure are in the | | | | | | results section. | + +--------+ + + + documented in this encounter Results EEG ROUTINE (10/01/2010) + + | Specimen | + + | | + + + + + | Narrative | Performed At | + + + | Patient Name: Kaden Liang Date of : 1940 | | | Date of Test: 10/04/2010 Place | | | of Service: [facility] ROUTINE EEG Database type: | | | Detail: With the patient awake, the posterior rhythm contained | | | much, moderate amplitude, symmetric 10 Hz activity. Hyperventilation | | | and photic stimulation produced no significant change in the EEG. | | | There was no focal abnormality or abnormal paroxysmal activity. | | | Impression: Normal EEG with the patient awake. No epileptiform | | | discharges, generalized or lateralized abnormalities were seen. | | | Electronically signed on 10/19/2010 11:04 AM by Richard Ortega | | | Luisa James, Department of Neurology Clinical Neurophysiology | | | Department | | + + + documented in this encounter Visit Diagnoses Not on filedocumented in this encounter"
--- OUTSIDE RECORDS SUMMARY | ~2020-03-28 | XMS | Encounter Summary ---
Demographics + + + | Address | [address] | | | [place] [address] | + + + | Home Phone | | + + + | Preferred Language | Unknown | + + + | Marital Status | | + + + | Jain Affiliation | Unknown | + + + | Race | White | + + + | Ethnic Group | Not or | + + + Author + + + | Author | [facility] | | | and [place] | + + + | Organization | [facility] | | [...] | | | | | [place] [address] | | + + + + + Care Team Providers + +------+ + | Care Sql Server Consultant Name | Role | Phone | + +------+ + | Murphy Jim | PCP | | | MD | | | + +------+ + Encounter Details +--------+ + + + + | Date | Type | Department | Care Team | Description | +--------+ + + + + | 08/17/ | Hospital | [facility] | John Garcia | S/p tibial fracture | | 2019 | Encounter | MED CTR [facility] | [address] | | | | | [address] | [facility] | | | | | [place], [place] | [place] [address] | | | | | [address] | [phone] | | | | | [phone] | | | +--------+ + + + [...] XR TIBIA FIBULA LEFT | Routin | 08/17/2018 | S/p tibial | Results for this | | 2 VW | e | 9:36 AM | fracture | procedure are in [...] + | Alvin, Rad Results In - 08/17/2018 1:34 PM PST [...]
--- OUTSIDE RECORDS SUMMARY | ~2020-03-28 | XMS | Encounter Summary ---
Demographics + + + | Address | [address] | | | [place] [address] | + + + | Home Phone | | + + + | Preferred Language | Unknown | + + + | Marital Status | | + + + | Temple Affiliation | Unknown | + + + | Race | White | + + + | Ethnic Group | Not or | + + + Author + + + | Author | [facility] | | | and [place] | + + + | Organization | [facility] | | | [...] | | | | | [place] [address] | | + + + + + Care Team Providers + +------+ + | Care Colorman Name | Role | Phone | + [...] | | | | NIKKI CRUZJame | [place] [address] | | | | | [place] [address] | | | | | | [phone] | | | +--------+ + + + [...] | + +--------+ + + + | HARSHA Koch ARM | Routin | 08/03/2018 | | Results for this | | | e | 12:05 AM | | procedure are in the | | | | PST | | results section. | + +--------+ + + + documented in this encounter Results HARSHA Babcock (08/03/2018 12:05 AM PST) + + | Specimen [...]
--- OUTSIDE RECORDS SUMMARY | ~2020-03-28 | XMS | Encounter Summary ---
Demographics + + + | Address | [address] | | | [place] [address] | + + + | Home Phone | | + + + | Preferred Language | Unknown | + + + | Marital Status | | + + + | Restorationism Affiliation | Unknown | + + + | Race | White | + + + | Ethnic Group | Not or | + + + Author + + + | Author | [facility] | | | and [place] | + + + | Organization | [facility] | | | [...] | | | | | [place] [address] | | + + + + + Care Team Providers + +------+ + | Care Talent Engineer Name | Role | Phone | + [...] | | | | NIKKI CRUZJame | [place] [address] | | | | | [place] [address] | | | | | | [phone] | | | +--------+ + + + [...] XR TIBIA FIBULA LEFT | Routin | 08/03/2018 | | Results for this | | 2 VW | e | 12:00 AM | | procedure are in the | | | | PST | | results section. | + +--------+ + + + documented in this encounter Results XR Tibia Fibula Left 2 Vw (08/03/2018 12:00 AM PST) + + | Specimen [...]
[~2020-03-28 17:03] MED LIST changes: +CALTRATE+D3 PL1 EACH PO; +COQ-10100 MG PO; +VIACTIV SOFT C1 EACH PO; +VITAMIN C500 M1 PO
--- OUTSIDE RECORDS SUMMARY | 2020-03-28 17:06 | XMS ---
[facility] DAMION LINDO Security Acquisition Lead Events No recent Security Events currently on file CRITERIA MET - [facility]KE[facility] CARE PROVIDERS MEDHAT [facility] Current PHONE: [phone] Yamilka has no Care Guidelines for this patient. ECristian VISIT COUNT (12 MO.) 1 FINESSE [place] TOTAL 1 NOTE: Visits indicate total known visits. ED/UCC VISIT TRACKING (12 MO.) 03/28/2020 17:03 FINESSE [place] TYPE: Emergency COMPLAINT: - FALL INPATIENT VISIT TRACKING (12 MO.) No inpatient visits to display in this time frame [email or web address]
[2020-03-28] MEDS ORDERED: TRIAMTERENE-HC1 EAC1 PO (17:10)
[2020-03-28] MEDS ORDERED: MACROBID 100 M100 MG PO (20:35)
--- NOTE | 2020-03-28 21:49 | EKG ---
[facility] [address] [facility] [facility] [place], [place] [address] Signed Sinus tachycardia Left axis deviation Abnormal ECG When compared with ECG of 29-JUL-2018 21:53, No significant change was found Confirmed by LILI CASEY MD ([id number]) on 03/28/2020 9:48:53 PM Electronically Signed By: LILI CASEY MD 03/28/20 2149 PATIENT NAME: ESTHELA LINDODang WELLSEE Electrocardiogram DATE OF : 38 PHYSICIAN: LILI CASEY MD REPORT #: [id number] REPORT IS CONFIDENTIAL AND NOT TO BE RELEASED WITHOUT AUTHORIZATION
== END 2020-03-28 21:28 | disposition home or self-care (01) ==
LOC: ED 17:03
PROC: 0HQ1XZZ Repair Face Skin, External Approach (ICD-10-PCS; principal; 2020-03-28)
DX: S01.112A Laceration without foreign body of left eyelid and periocular area, initial encounter (principal); N39.0 Urinary tract infection, site not specified; R00.0 Tachycardia, unspecified; Z87.891 Personal history of nicotine dependence; Z88.2 Allergy status to sulfonamides; W18.30XA Fall on same level, unspecified, initial encounter
CPT/HCPCS: 12011; 70450; 72125; 80053; 81001; 84484; 85025; 87077; 87088; 87186; 93005; 93010; 99285-25; J7030

== ENCOUNTER 2021-09-01 10:09 | Inpatient (IN) | payer MEDICARE, OTHER ==
[~2021-09-01] VITALS: Ht 172.7 cm; Wt 86.0 kg
[~2021-09-01 10:09] MED LIST changes: +CALCIUM CARBON600 M1 PO; +CEFDINIR300 MG PO; +FUROSEMIDE20 MG PO; +LEVOFLOXACIN750 MG PO; +MACROBID 100 M100 MG PO; +MUCINEX600 MG PO; +NYSTATIN15 GM TOP; +POTASSIUM CHLO10 MEQ PO; +PREDNISONE20 MG PO; +TRIAMTERENE-HC1 EAC1 PO; +TYLENOL EXTRA500 MG PO; -VIACTIV SOFT C1 EACH PO
--- OUTSIDE RECORDS SUMMARY | 2021-09-01 10:16 | XMS ---
PreManage Notification: DAMION LINDO Security Instructor Of Sociology Events No recent Security Events currently on file CRITERIA MET - [facility] - 2 Visits in 30 Days CARE PROVIDERS MED[facility]AT [facility] Current PHONE: [phone] TEJINDER BENAVIDES [facility] Current PHONE: Unknown Yamilka has no Care Guidelines for this patient. Ginny VISIT COUNT (12 MO.) [address] [place] [address] TOTAL 3 NOTE: Visits indicate total known visits. ED/UCC VISIT TRACKING (12 MO.) 09/01/2021 10:10 [facility] TYPE: Emergency COMPLAINT: - POSS STROKE 08/24/2021 10:38 [facility] TYPE: Emergency COMPLAINT: - POSS UTI, CONFUSED DIAGNOSES: - Age-related osteoporosis without current pathological fracture - Other intermediate (current) drug therapy - Unspecified dementia without behavioral disturbance - Unspecified asthma, uncomplicated - Disorientation, unspecified - Urinary tract infection, site not specified - Allergy status to sulfonamides - Unspecified chronic bronchitis 07/21/2021 16:[address] [facility] TYPE: Emergency COMPLAINT: - COUGH DIAGNOSES: - COUGH, UNSPECIFIED - Allergy status to sulfonamides - Unspecified asthma, uncomplicated - Personal history of nicotine dependence - Acute bronchitis, unspecified - Other intermediate (current) drug therapy - Urinary tract infection, site not specified INPATIENT VISIT TRACKING (12 MO.) No inpatient visits to display in this time frame [email or web address]
[2021-09-01] MEDS ORDERED: FLOVENT HFA12 G1 INH (10:56)
[2021-09-01] MEDS ORDERED: FUROSEMIDE20 MG PO (11:00)
--- NOTE | 2021-09-01 15:59 | NUR ---
LE 1515 PT ARRIVED IN ROOM 122 VIA STRETCHER FROM ER. TRANSFERRED PT TO BED WITH 3 PERSON ASSIST. 1530 ADMISSION DONE. PT RESPONDS TO VERBAL COMMANDS BY SHAKING HER HEAD YES OR NO. 1600 PT ENCOURAGED TO COUGH TO HELP CLEAR MUCUS IN THROAT. NO C/O'S AT THIS TIME.
--- NOTE | 2021-09-01 16:16 | NUR ---
PT UNABLE TO DO BEDSIDE SWALLOWING SCREEN R/T CHOKING ON MUCUS IN THROAT AND UNABLE TO CLEAR THROAT WITHOUT VERBAL REMINDERS.
--- NOTE | 2021-09-01 17:03 | NUR ---
THIS RN RECEIVED REPORT FROM BESSY AVILA. THIS RN TO ASSUME CARE OF PT
--- NOTE | 2021-09-01 18:00 | NUR ---
THIS RN IN PTS ROOM. PT APPEARS TO BE RESTING BUT PT HAS A GURGLING SOUND IN THE BACK OF HER THROAT. THIS RN ENCOURAGED PT TO COUGH. PT ABLE OT COUGH WITH MUCH ENCOURAGEMENT, THIS RN THEN SUCTIONED PT AND ABLE TO CLEAR PTS SECREATIONS. IN PTS ROOM. PT ONLY ABLE TO ANSWER YES/NO QUESTIONS
--- NOTE | 2021-09-01 19:20 | NUR ---
report from [facility] - pt eyes closed resting, call light in reach Iv fusing.
--- NOTE | 2021-09-01 20:00 | NUR ---
DR DANIEL IN ROOM WITH PT - ENC. HER TO COUGH AND PROTECT AIRWAY. DISCUSSED IF SHE WANTED VENTILATOR IF NEEDED, SHE NODDED HEAD YES SHE UNDERSTOOD AND YES TO SHE WANTED IT. RN REPOSITIONED HER - SHE IS UN ABLE TO SPEAK - BUT SMILES EQUALLY. AND GIVES HAPPY FACIAL EXPRESSIONS, ASKED IF WANTED WARM BLANKET AND NODDED YES - GIVEN AND PILLOW TO FLOAT HEELS 5 PLUS PITTING EDEMA FROM KNEE DOWN BILATERALLY. PT FALLS ASLEEP EASILY AND HAS AUDIBLE GURGLE SOUNDS FROM LUNGS DURING MOST OF ASSESSMENT - ABLE TO COUGH WHEN ASKED - BUT NEVER REALLY CLEARS THE GURGLES. RESP EVEN AT REST AND MOUTH OPEN WITH GURGLES HEARD. CALL LIGHT IN REACH.
--- NOTE | 2021-09-01 20:50 | NUR ---
report to cindy for transfer of pt to [facility].
--- NOTE | 2021-09-01 21:40 | NUR ---
PT ARRIVED TO CCU AROUND 2104. PT WAS AWAKE ON ROOM AIR, IVF INFUSING ORDERED. PT IN NO APPARENT DISTRESS AND DENIES HAVING ANY PAIN. PT UNABLE TO SPEAK PER REPORT BUT CAN NOD YES AND NO WHEN ASKED QUESTIONS. PT REPORTS FEELING COLD, WARM BLANKETS PROVIDED. TEMPORAL TEMPERATURE TAKEN AND WAS 95 AT THIS TIME, UNABLE TO OBTAIN AXILLARY OR ORAL TEMPERATURE. ASSESSMENT COMPLETED, VITALS TAKEN (SEE CHART). RT NOW IN TO ASSESS PT. PT MOMENTARILY PLACED ON 4L O2 NC SHE BEGAN TO DESAT TO 85% ON ROOM AIR. PT TAKEN OFF AFTER 10 MINUTES AND MAINTAIN AN SPO2 92-95% ON ROOM AIR. DR. DANIEL CALLED THIS RN AND WAS UPDATED ON THE PT. RT TO UPDATE DR. DANIEL AFTER COMPLETING ASSESSMENT. WILL CONTINUE PLAN OF CARE, CALL LIGHT IN REACH, BED IN LOWEST POSITION, IVF INFUSING ORDERED, PT REPORTS NO FURTHER NEEDS.
--- NOTE | 2021-09-01 22:00 | NUR ---
[facility] CALLED FOR INTUBATION PER DR. DANIEL.
--- NOTE | 2021-09-01 22:03 | NUR ---
DR. DANIEL IN ROOM TO DISCUSS INTUBATION WITH PT. PT AGREEABLE TO BE INTUBATED. MANAGER E LEARNING NOTIFIED AND WILL NOTIFY RT AND MASTER OCEAN. PT AWAKE AT THIS TIME SITTING UP IN BED ON ROOM AIR AND REPORTS NO NEEDS. PT INCONTINENT OF URINE, PERICARE DONE AND NEW ATTENDS/PAD PLACED UNDER. RECTAL TEMPERATURE OBTAINED AXILLARY, AND ORAL TEMPERATURES WERE UNSUCCESSFUL, TEMPERATURE OF [address] OB[address] DANIEL NOTIFIED, PT PLACED ON THE LEONARDO HUGGER TO INCREASE TEMPERATURE. IVF INFUSING ORDERED AT THIS TIME, CODE CART OUTSIDE ROOM, VENTILATOR BEING SET UP BY RT. WILL CONTINUE PLAN OF CARE. PT REPORTS NO FURTHER NEEDS AT THIS TIME WHEN ASKED, MARGARITA SOUSA PLACING IV AT THIS TIME.
--- NOTE | 2021-09-01 23:00 | NUR ---
THIS RN PLACED MULTIPLE CALLS TO [facility] FOR [facility] FOR PT. [facility] REPORTS "WE THINK WE CAN GET IT DONE TONIGHT". DR. DANIEL ALSO SPOKE WITH [facility].
--- NOTE | 2021-09-01 23:38 | NUR ---
INTUBATION TEAM ARRIVED WHICH CONSISTED OF THE HEAD COOK, PARKS WORKER, BILLY RN, THIS RN, AND THE RT. PT INTUBATED AT 2230 WITH A 7.0 TUBE 24 AT THE LIP. AFTER INTUBATION CRN ADMINISTERED EPHEDRINE FOLLOWED BY NEOSYNEPHRINE DUE TO LOW BLOOD PRESSURES (SEE CHART). PT'S IVF PLACED ON PRESSURE BAGS AT 2235 DUE TO LOW BP. PROPOFOL THEN STARTED AT 20MCG/KG/MIN ORDERED (SEE CHART). X-RAY TAKEN AT THE BEDSIDE BY IMAGING STAFF AND PLACEMENT OF TUBE CONFIRMED BY DR. FRIAS AT 2300. AFTERWARDS QUINTANILLA PLACED BY MARGARITA SOUSA. VERBAL ORDER GIVEN BY DR. CASH AT 2305 FOR A NEOSYNEPHRINE DRIP TO MAINTAIN MAP ABOVE 65 (SEE CHART). IN THE MEANTIME THE HEAD COOK ADMINISTEREED 100 MCG OF NEOSYNEPHRINE TO MAINTAIN PT'S BP. WARM LR STARTED AND INFUSING AT ORDERED RATE TO IMPROVE PT'S TEMPERATURE (SEE CHART). SOFT RESTRAINTS PLACED ON WRISTS BILATERALLY AFTERWARDS TO PROTECT LINES AND ET TUBE. PT IN NO APPARENT DISTRESS AT THIS TIME AND IS NOW RESTING IN BED. VENT SETTINGS ARE VT 380, FIO2 50%, RR 14, PEEP 8, PIP 24. WILL CONTINUE PLAN OF CARE.
--- NOTE | 2021-09-02 00:50 | NUR ---
PT IN BED ON THE VENTILATOR, SETTINGS UNCHANGED, SPO2 98-100%. CEFEPIME STARTED AND NOW INFUSING ORDERED (SEE MAR). NEOSYNEPHRINE TITRATED DOWN FROM 40 MCG/MIN TO 20 MCG/MIN PT MAP WAS 80 MMHG WITH AN SBP OVER 120 (SEE CHART). RT NOW IN TO DO REPEATE ABG, PT ASSESSED AT THIS TIME (SEE CHART). CMS ASSESSED AND IS INTACT (SEE CHART), WILL CONTINUE PLAN OF CARE.
--- NOTE | 2021-09-02 01:10 | NUR ---
NEOSYNEPHRINE INCREASED UP TO 40MCG/MIN AND THEN INCREASED AGAIN TO 60MCG/MIN AFTER REASSESSING BP MAP MAINTAINED BELOW 65 (SEE CHART). PROPOFOL ALSO INCREASED TO 40MCG/KG/MIN PT WAS SLIGHTLY RESTLESS IN BED. VENTILATOR STILL ON, SETTINGS UNCHANGED, SPO2 98-100%. PT ORAL AND ET SUCTIONED AT THIS TIME. NO FURTHER NEEDS ASSESSED, MARGARITA BELLA IN TO ATTEMPT ANOTHER IV. WILL CONTINUE PLAN OF CARE.
--- NOTE | 2021-09-02 01:46 | NUR ---
[facility] CALLED WHO REPORT THEY DO NOT HAVE BED SPACE AVAILABLE AT THIS TIME AND WILL CALL BACK WITH ANY UPDATES. [facility] ALSO REPORTS "WE WILL TRY AND GET IT DONE TONIGHT".
--- NOTE | 2021-09-02 02:54 | NUR ---
PT LAYING IN BED ON THE VENTILATOR, SETTINGS UNCHANGED, SPO2 100%. PT IV MEDICATIONS INFUSING AT PREVIOUS RATES. NEOSYNEPHRINE INCREASED TO 80 MCG/MIN DUE TO MAP UNDER 65. CMS THEN ASSESSED AND IS INTACT. STRONG RADIAL PULSES, BRISK CAPILLARY REFILL. PT THEN ORAL AND IN LINE SUCTIONED AT THIS TIME. PT IN NO APPARENT DISTRESS AT THIS TIME, WILL CONTINUE PLAN OF CARE.
--- NOTE | 2021-09-02 03:30 | NUR ---
RT IN ROOM TO ASSESS PT. FIO2 DECREASED TO 40% BY THE RT. ALL OTHER VENT SETTINGS LEFT IS, WILL CONTINUE PLAN OF CARE. PT SPO2 98% AT THIS TIME, PT IN NO APPARENT DISTRESS, IV MEDICATIONS INFUSING AT PREVIOUS RATES.
--- NOTE | 2021-09-02 03:51 | NUR ---
NEOSYNEPHRINE DRIP INCREASED TO 100 MCG/MIN AT THIS TIME TO MAINTAIN MAP ABOVE 65. OTHER IV MEDICATIONS INFUSING AT PREVIOUS RATE, VENT SETTINGS UNCHANGED, SPO2 99-100%, PT IN NO APPARENT DISTRESS, WILL CONTINUE PLAN OF CARE.
--- NOTE | 2021-09-02 05:12 | NUR ---
PT RESTING IN BED ON THE VENTILATOR, SETTINGS UNCHANGED, SPO2 99%. IV MEDICATIONS INFUSING AT PREVIOUS RATE, MAP ABOVE 65 (SEE CHART). VITALS TAKEN AT THIS TIME AND ASSESSMENT COMPLETED (SEE CHART). LEONARDO HUGGER TURNED OFF AFTERWARDS PT'S QUINTANILLA TEMP WAS 99.9F. PT THEN REPOSITIONED IN BED AND PILLOWS PLACED UNDERNEATH RIGHT SIDE. ORAL AND ET SUCTION DONE AFTERWARDS TO CLEAR SECRETIONS. PT RESTING IN BED NOW IN NO APPARENT DISTRESS, WILL CONTINUE PLAN OF CARE.
--- NOTE | 2021-09-02 05:40 | NUR ---
[facility] CALLS TO REQUEST COVID TEST RESULTS. FAXED. [facility] REPORTS THEY WILL BE ABLE TO TAKE PT BUT NOT TILL AFTER 7AM.
--- NOTE | 2021-09-02 05:56 | NUR ---
THIS RN CONTINUES TO CALL FOR TRANSFER. [address] [facility] CUR[facility] POSSIBILITIES.
--- NOTE | 2021-09-02 06:40 | NUR ---
MRI. CALLED THIS RN TO GET AN UPDATE ON THE PT AND CLARIFY IF CONTRAST WAS NEEDED. DR. DANIEL CALLED AND REQUESTED TO HOLD THE MRI AT THIS TIME DUE TO POTENTIAL TRANSFER. DUMPER BAILER OPERATOR NOTIFIED, WILL CONTINUE PLAN OF CARE
--- NOTE | 2021-09-02 06:50 | NUR ---
PT RESTING IN BED AT THIS TIME ON VENTILATOR, SETTINGS UNCHANGED, IVF INFUSING AT PREVIOUS RATES (SEE MAR). CMS ASSESSED AND IS INTACT, STRONG RADIAL PULSES, BRISK CAPILLARY REFILL. PT IN NO APPARENT DISTRESS AT THIS TIME AND WAS LEFT UNDISTURBED, WILL CONTINUE PLAN OF CARE. CALL LIGHT IN REACH, BED IN LOWEST POSITION.
--- NOTE | 2021-09-02 07:34 | NUR ---
PT RESTING IN BED ON THE VENTILATOR AT THIS TIME, IV INFUSIONS INFUSING AT PREVIOUS RATES (SEE MAR). SCHEDULED VANOCMYCIN ADMINISTERED AT THIS TIME (SEE MAR). NO FURTHER NEEDS ASSESSED AT THIS TIME, WILL CONTINUE PLAN OF CARE.
--- NOTE | 2021-09-02 08:32 | NUR ---
IN PATIENT'S ROOM FOR ASSESSMENT. PT ON VENT WITH SETTINGS OF VC/AC 14, VT 380, PEEP 8, FI02 40%. PATIENT TOLERATING VENT AT THIS TIME AND NOT COUGHING AGAINST IT. PROPOFOL AT 40 MCG/KG/MIN, NEOSYNEPHRIN AT 100 MCG/MIN, AND IV VANCO INFUSING. PT'S COUSIN KARL IN THE ROOM. WRIST RESTRAINTS INTACT B ILATERALLY AND CMS INTACT. PT TO BE TRANSFERED TO [place], ID FOR NEUROLOGY. PT HAS 7.0 ETT SECURED AT 23 AT THE TEETH. PT'S WEIGHT OBTAINED AND FOUND TO BE 86 KG AND THIS ADDED TO CHART. UPDATED IV PROPOFOL ON PUMP TO REFLECT ACCURATE WEIGHT OF 86 KG, NOT 66 KG. PROPOFOL THEN TITRATED DOWNT O 30 MCG/KG/MIN. CONTINUE TO MONITOR CLOSELY. ORAL CARE PROVIDED.
--- NOTE | 2021-09-02 08:53 | NUR ---
[facility] TEAM HERE AND REPORT GIVEN TO THEM. NOW SWITCHING OVER TO THEIR MONITORS.
[2021-09-02] MEDS ORDERED: VITAMIN D350 MC3 PO (10:21)
[2021-09-02] MEDS ORDERED: PROAIR RESPICL90 MCG INH (10:24)
--- NOTE | 2021-09-02 10:26 | NUR ---
MED REC COMPLETE
--- NOTE | 2021-09-02 18:36 | EKG ---
[facility] [address] [place], [place] [address] Signed Sinus rhythm with premature atrial complexes Minimal voltage criteria for LVH, may be normal variant ( R in aVL ) Borderline ECG When compared with ECG of 24-AUG-2021 11:26, premature atrial complexes are now present Confirmed by DE DANIEL DO ([id number]) on 09/02/2021 6:36:41 PM Electronically Signed By: DE DANIEL DO 09/02/21 1836 PATIENT NAME: DAMION LINDO Electrocardiogram DATE OF : 38 PHYSICIAN: DE DANIEL DO REPORT #: [id number] REPORT IS CONFIDENTIAL AND NOT TO BE RELEASED WITHOUT AUTHORIZATION
== END 2021-09-02 09:15 | disposition short-term general hospital (02) | DRG 56 ==
LOC: ED 10:09 → MS 13:32 → CCU 20:52
PROVIDERS: ADMIT Student in an Organized Health Care Education/Training Program; ATTEND Student in an Organized Health Care Education/Training Program
PROC: 0BH17EZ Insertion of Endotracheal Airway into Trachea, Via Natural or Artificial Opening (ICD-10-PCS; principal; 2021-09-01)
PROC: 5A1935Z Respiratory Ventilation, Less than 24 Consecutive Hours (ICD-10-PCS; 2021-09-01)
DX: G12.22 Progressive bulbar palsy (principal); J96.01 Acute respiratory failure with hypoxia; N39.0 Urinary tract infection, site not specified; N17.9 Acute kidney failure, unspecified; R47.01 Aphasia; E87.3 Alkalosis; Z20.822 Contact with and (suspected) exposure to COVID-19; Z66 Do not resuscitate; I95.9 Hypotension, unspecified; R13.10 Dysphagia, unspecified; R47.02 Dysphasia; I50.9 Heart failure, unspecified; D72.829 Elevated white blood cell count, unspecified; F41.9 Anxiety disorder, unspecified; J45.909 Unspecified asthma, uncomplicated; M81.0 Age-related osteoporosis without current pathological fracture; D89.89 Other specified disorders involving the immune mechanism, not elsewhere classified; Z90.710 Acquired absence of both cervix and uterus; Z98.890 Other specified postprocedural states; Z87.891 Personal history of nicotine dependence; Z88.2 Allergy status to sulfonamides; Z79.899 Other long term (current) drug therapy; Z79.52 Long term (current) use of systemic steroids; Z87.440 Personal history of urinary (tract) infections
CPT/HCPCS: 31500; 36415; 36600; 70450; 70496; 70498; 71045; 80048; 80053; 81001; 82803; 83735; 84484; 85025; 85610; 85730; 86140; 87088; 93005; 93010; 94002; 94003; 99285-25; C9803; J0330; J0692; J1650; J2001; J2250; J2370; J2704; J3010; J3370; J7060; J7121; Q9967; U0003